=== PATIENT | male | born 1990 | race Caucasian/White ===

== ENCOUNTER 2020-02-14 14:17 | Inpatient (IN) | payer MEDICAID, SELFPAY ==
[2020-02-14] VITALS (9 sets, daily range): BP systolic 107–143; BP diastolic 56–91; PULSE 72–112; RESP 16–20; TEMP 36.5–37.9; O2SAT 96–99; BMI 48.8
--- NOTE | 2020-02-14 14:39 | XR_ITS ---
WS: [id number] PORTABLE CHEST HISTORY: cough/congestion COMPARISON: 07/13/2016 Lungs are clear and well expanded. No pleural effusion or pneumothorax. Cardiac size: Normal. Mediastinum/Aorta: Normal mediastinum. No osseous abnormality seen. XR/XR chest 1V portable [id number] IMPRESSION: Unremarkable portable chest.
--- NOTE | 2020-02-14 14:41 | W.ED.FEVER ---
HPI - Fever General: Chief Complaint: Fever Stated Complaint: fever x 10 days Time Seen by Provider: 02/14/20 14:27 Source: patient Mode of arrival: ambulatory Limitations: no limitations History of Present Illness: HPI Narrative: Patient is a very nice 29-year-old male who presents to ED today with complaints of a fever over the past 10 days. Patient tells me fever has been as high as 102 however states over the past few days it has been in the 100 range. Patient was recently seen by his PCP and had a negative flu and COVID testing performed. He also had lab work performed which showed elevated LFTs. These were scheduled to be monitored and repeated in the future. Patient tells me he is not having abdominal pain. He denies nausea, vomiting, changes in bowel movements. He has noticed darker than normal urine. He does not complain of dysuria, frequency, urgency. He has no flank pain. Patient tells me he has noticed a rash to his lower extremities beginning yesterday and into today. He complains of a mild cough and mild sore throat. He has not had any sick contacts and no recent travel. Patient reportedly is otherwise healthy and takes no daily medications. MD elicited complaint: fever Onset (ago): day(s) Measured temperature: 102 F Exacerbating factors: nothing Relieving factors: acetaminophen and ibuprofen Associated symptoms: Reports chills and other (dark urine, cough, sore throat, rash, told he has elevated LFTs); Deny abdominal pain, back/flank pain, chest pain, diarrhea, dysuria, extremity pain, headache(s), nasal congestion, nausea, sinus pain or vomiting Treatments prior to arrival fever: acetaminophen Review of Systems Const: Reports: fever, chills, body aches and malaise; Denies: change in appetite or change in weight Eyes: Denies: change in vision, blurry vision, photophobia, eye discharge, floaters or seeing flashes ENMT: Reports: throat pain; Denies: uvular edema, enlarged tonsils, mouth pain, swelling of lips/tongue, oral sores/lesions, dental pain, ear discharge, tinnitus, nasal discharge, nasal congestion, post nasal drip or facial/sinus pain Card: Denies: chest pain, palpitations, irregular heart rhythm, swelling of feet/ankles, lightheadedness, syncope or shortness of breath on exertion Resp: Reports: non-productive cough (mild per patient); Denies: shortness of breath, productive cough, pain on inspiration, change in phlegm color, coughing up blood or chest congestion GI: Denies: abdominal pain, nausea, vomiting, vomiting blood, coffee grounds in vomit, heartburn/indigestion, diarrhea, bloating, change in bowel habits, rectal pain, change in stool character, blood in stool, black tarry stool, white/light colored stool or fatty stool : Reports: other (darker than normal urine); Denies: flank pain, difficulty urinating, painful urination, urinary frequency, urinary urgency, urinary hesitancy, difficulty starting urination, change in urine stream, blood in urine, genital lesion, testicular pain, testicular mass or scrotal swelling Musc: Denies: neck pain, back pain, extremity pain, extremity swelling, joint pain or joint swelling Skin/Breast: Reports: rash; Denies: itching, sensitivity to light, skin pain or yellow skin Neuro: Denies: headache, numbness in extremities, weakness in extremities, changes in sensation, difficulty walking, dizziness or slurred speech Endo: Denies: excessive urination or excessive thirst PFSH ED PFSH: Social History Smoking and tobacco status: never smoked Physical Exam Const: COMMON NORMALS: oriented x3, no limitations and alert NUTRITIONAL APPEARANCE: obese morbidly obese ORIENTATION/CONSCIOUSNESS: Yes oriented to person, Yes oriented to place and Yes oriented to time HENMT: COMMON NORMALS: normocephalic, head/scalp atraumatic, hearing grossly normal bilaterally, external ears normal, EAC's normal, TM's normal bilaterally, external nose normal, nasal mucous membranes and turbinates normal, moist oral mucous membranes, oropharynx normal, dentition normal and gingiva normal HEAD & SCALP: normal to inspection, normocephalic and atraumatic FACE & SINUS: normal facial exam and sinuses nontender NOSE: external nose normal and nasal mucous membranes and turbinates normal EXTERNAL EAR: Yes external ears normal EXTERNAL AUDITORY CANAL: EAC's normal TYMPANIC MEMBRANE: TM's normal bilaterally THROAT: posterior oropharynx normal, tonsils normal and uvula midline; no uvular edema Eye: COMMON NORMALS: PERRL, EOMs intact bilaterally, conjunctivae normal and no scleral icterus CONJUNCTIVA: Yes conjunctivae normal PUPIL: Yes PERRL Neck/C-Spine: COMMON NORMALS: full ROM, no lymphadenopathy and no meningeal signs Lymph: LYMPHATIC: no lymphadenopathy noted Chest: COMMONS NORMALS: inspection of chest normal and palpation of chest normal Resp: COMMON NORMALS: normal respiratory effort and clear to auscultation bilaterally AUSCULTATION: clear to auscultation bilaterally Cardio: COMMON NORMALS: regular rhythm RATE: tachycardic RHYTHM: regular rhythm GI: COMMON NORMALS: normal to inspection, nondistended, normoactive bowel sounds, soft to palpation, non-tender, no hepatosplenomegaly and no masses PALPATION: Yes soft and Yes no hepatosplenomegaly OTHER: exam somewhat inhibited due to truncal obesity : COMMON NORMALS: Yes no CVA tenderness BLADDER/KIDNEY EXAM: Yes no CVA tenderness Back/Pelvis: COMMON NORMALS: no CVA tenderness Extremity: COMMON NORMALS: normal to inspection and full ROM Neuro: REGGIE COMA SCALE: document GCS findings Reggie coma scale eye opening: Spontaneous Amasa coma scale verbal response: Orientated Reggie coma scale motor response: Obey commands Reggie coma scale total score: 15 COMMON NORMALS: oriented x3, moves all extremities, no focal motor deficits, no sensory deficits noted and gait normal SENSORIUM/ORIENTATION: Yes alert, Yes oriented to person, Yes oriented to place and Yes oriented to time MENINGEAL SIGNS: Yes no meningeal signs Skin: GENERAL SKIN EXAM: other (diaphoretic?states his fever is breaking) OTHER: pt appears to have some erythema to bilateral anterior legs; this looks to be a mild sunburn as there are definite sock lines where the rash stops; he does however have a petechial appearing rash to bilateral dorsums of his feet that is not consistent with sun exposure Course Vital Signs: Vital signs: Vital Signs Temperature 98.4 F 02/14/20 14:27 Pulse Rate 111 H 02/14/20 14:27 Respiratory Rate 18 02/14/20 14:27 Blood Pressure 143/91 02/14/20 14:27 Pulse Oximetry 98 02/14/20 14:27 MDM - Fever MDM Narrative: Medical decision making narrative: Patient remains tachycardic. He does not seem to be improving with his illness. Labs showing mild leukocytosis, mild thrombocytopenia, mild hyponatremia, mild elevations in BUN/Cr and LFTs, mild elevation of his lipase. He does have a lactate of 2.9. His CRP is over 320. I spoke to Dr. Gannon who spoke to Dr. Kiran and we will admit to observation. We will add on a tick panel, strep, and repeat COVID testing per Dr. Kirna's request Lab Data: Labs: Lab Results 02/14/20 02/14/20 02/14/20 Range/Units 14:45 14:45 14:45 WBC 13.7 H (4.0-10.0) 10^3/ uL RBC 4.98 (4.1-5.3) 10^6/u L Hgb 13.4 (11.7-16.6) g/dL Hct 41.0 L (42.0-52.0) % MCV 82.3 (80-94) fL MCH 26.9 L (28.0-34.0) pg MCHC 32.7 (30.0-36.0) g/dL RDW 14.2 (12.1-15.1) % Plt Count 114 L (130-400) 10^3/c mm MPV 12.4 H (7.4-10.4) fL Neut % (Auto) 83.2 % Lymph % (Auto) 9.5 % Briscoe % (Auto) 5.9 % Eos % (Auto) 0.1 % Baso % (Auto) 0.1 % Neut # (Auto) 11.4 H (1.8-7.7) 10^3/u L Lymph # (Auto) 1.3 (0.8-4.8) 10^3/u L Briscoe # (Auto) 0.8 (0.2-0.9) 10^3/u L Eos # (Auto) 0.0 (0.0-0.8) 10^3/u L Baso # (Auto) 0.0 (0.0-0.1) 10^3/u L Nucleated RBC % (a uto) 0 % Nucleated RBCs # 0.0 /100WBC PT 13.90 H (10.5-13.3) SECO NDS INR 1.07 (0.8-1.2) APTT 27.1 (23.9-36.7) SECO NDS Sodium 129 L (136-145) mmol/L Potassium 4.0 (3.5-5.1) mmol/L Chloride 88 L (98-107) mmol/L Carbon Dioxide 25 (22-29) mmol/L Anion Gap 20.0 H (5-19) BUN 28 H (6-20) mg/dL Creatinine 1.4 H (0.7-1.2) mg/dL GFR Calculation 59.1 L (90-130) mL/min Glucose 196 H (65-115) mg/dL Calculated Osmolal ity 270 L (285-295) mOsm/k g Lactate (0.5-2.2) mmol/L Calcium 9.3 (8.5-10.5) mg/dL Total Bilirubin 1.1 (0.15-1.2) mg/dL AST 42 H (0-40) U/L ALT 63 H (0-41) U/L Alkaline Phosphata se 162 H (40-130) IU/L Creatine Kinase 23 L (39-308) U/L C-Reactive Protein 320.9 H (0.0-4.9) mg/L Total Protein 6.8 (6.6-8.7) g/dL Albumin 3.1 L (3.5-5.2) g/dL Globulin 3.7 (1.3-4.6) g/dL Lipase 107 H (13-60) U/L Urine Color (Yellow) Urine Appearance (CLEAR) Urine pH (5-7) Ur Specific Gravit y (1.005-1.030) Urine Protein (Negative) Urine Glucose (UA) (Normal) Urine Ketones (Negative) Urine Blood (Negative) Urine Nitrate (Negative) Urine Bilirubin (NEGATIVE) Urine Urobilinogen (Negative) mg/dL Ur Leukocyte Carey ase (Negative) Urine RBC (0-2) /hpf Urine WBC (0-5) /hpf Ur Squamous Epith Cells (0-5) Urine Bacteria (NONE) Urine Mucus Salicylates < 0.3 L (3-10) mg/dL Urine Opiates Scre en (Negative) ng/mL Acetaminophen < 5.0 L (10-30) ug/mL Ur Barbiturates Sc reen (Negative) ng/mL Ur Phencyclidine S crn (Negative) ng/mL Ur Amphetamines Sc reen (Negative) ng/mL U Benzodiazepines Scrn (Negative) ng/mL Urine Cocaine Scre en (Negative) ng/mL U Marijuana (THC) Screen (Negative) ng/mL Hepatitis A IgM Ab (Nonreactive) Hep Bs Antigen (Nonreactive) Hep Bs Antibody (0-8.5) Hep B Core Total A b (Nonreactive) Hepatitis C Antibo dy (Nonreactive) Monoscreen (Negative) 02/14/20 02/14/20 02/14/20 Range/Units 14:45 14:45 14:45 WBC (4.0-10.0) 10^3/ uL RBC (4.1-5.3) 10^6/u L Hgb (11.7-16.6) g/dL Hct (42.0-52.0) % MCV (80-94) fL MCH (28.0-34.0) pg MCHC (30.0-36.0) g/dL RDW (12.1-15.1) % Plt Count (130-400) 10^3/c mm MPV (7.4-10.4) fL Neut % (Auto) % Lymph % (Auto) % Briscoe % (Auto) % Eos % (Auto) % Baso % (Auto) % Neut # (Auto) (1.8-7.7) 10^3/u L Lymph # (Auto) (0.8-4.8) 10^3/u L Briscoe # (Auto) (0.2-0.9) 10^3/u L Eos # (Auto) (0.0-0.8) 10^3/u L Baso # (Auto) (0.0-0.1) 10^3/u L Nucleated RBC % (a uto) % Nucleated RBCs # /100WBC PT (10.5-13.3) SECO NDS INR (0.8-1.2) APTT (23.9-36.7) SECO NDS Sodium (136-145) mmol/L Potassium (3.5-5.1) mmol/L Chloride (98-107) mmol/L Carbon Dioxide (22-29) mmol/L Anion Gap (5-19) BUN (6-20) mg/dL Creatinine (0.7-1.2) mg/dL GFR Calculation (90-130) mL/min Glucose (65-115) mg/dL Calculated Osmolal ity (285-295) mOsm/k g Lactate 2.9 H (0.5-2.2) mmol/L Calcium (8.5-10.5) mg/dL Total Bilirubin (0.15-1.2) mg/dL AST (0-40) U/L ALT (0-41) U/L Alkaline Phosphata se (40-130) IU/L Creatine Kinase (39-308) U/L C-Reactive Protein (0.0-4.9) mg/L Total Protein (6.6-8.7) g/dL Albumin (3.5-5.2) g/dL Globulin (1.3-4.6) g/dL Lipase (13-60) U/L Urine Color (Yellow) Urine Appearance (CLEAR) Urine pH (5-7) Ur Specific Gravit y (1.005-1.030) Urine Protein (Negative) Urine Glucose (UA) (Normal) Urine Ketones (Negative) Urine Blood (Negative) Urine Nitrate (Negative) Urine Bilirubin (NEGATIVE) Urine Urobilinogen (Negative) mg/dL Ur Leukocyte Carey ase (Negative) Urine RBC (0-2) /hpf Urine WBC (0-5) /hpf Ur Squamous Epith Cells (0-5) Urine Bacteria (NONE) Urine Mucus Salicylates (3-10) mg/dL Urine Opiates Scre en (Negative) ng/mL Acetaminophen (10-30) ug/mL Ur Barbiturates Sc reen (Negative) ng/mL Ur Phencyclidine S crn (Negative) ng/mL Ur Amphetamines Sc reen (Negative) ng/mL U Benzodiazepines Scrn (Negative) ng/mL Urine Cocaine Scre en (Negative) ng/mL U Marijuana (THC) Screen (Negative) ng/mL Hepatitis A IgM Ab Non-reactive (Nonreactive) Hep Bs Antigen Non-reactive (Nonreactive) Hep Bs Antibody 631.7 H (0-8.5) Hep B Core Total A b Non-reactive (Nonreactive) Hepatitis C Antibo dy Non-reactive (Nonreactive) Monoscreen Negative (Negative) 02/14/20 02/14/20 Range/Units 15:50 15:50 WBC (4.0-10.0) 10^3/ uL RBC (4.1-5.3) 10^6/u L Hgb (11.7-16.6) g/dL Hct (42.0-52.0) % MCV (80-94) fL MCH (28.0-34.0) pg MCHC (30.0-36.0) g/dL RDW (12.1-15.1) % Plt Count (130-400) 10^3/c mm MPV (7.4-10.4) fL Neut % (Auto) % Lymph % (Auto) % Briscoe % (Auto) % Eos % (Auto) % Baso % (Auto) % Neut # (Auto) (1.8-7.7) 10^3/u L Lymph # (Auto) (0.8-4.8) 10^3/u L Briscoe # (Auto) (0.2-0.9) 10^3/u L Eos # (Auto) (0.0-0.8) 10^3/u L Baso # (Auto) (0.0-0.1) 10^3/u L Nucleated RBC % (a uto) % Nucleated RBCs # /100WBC PT (10.5-13.3) SECO NDS INR (0.8-1.2) APTT (23.9-36.7) SECO NDS Sodium (136-145) mmol/L Potassium (3.5-5.1) mmol/L Chloride (98-107) mmol/L Carbon Dioxide (22-29) mmol/L Anion Gap (5-19) BUN (6-20) mg/dL Creatinine (0.7-1.2) mg/dL GFR Calculation (90-130) mL/min Glucose (65-115) mg/dL Calculated Osmolal ity (285-295) mOsm/k g Lactate (0.5-2.2) mmol/L Calcium (8.5-10.5) mg/dL Total Bilirubin (0.15-1.2) mg/dL AST (0-40) U/L ALT (0-41) U/L Alkaline Phosphata se (40-130) IU/L Creatine Kinase (39-308) U/L C-Reactive Protein (0.0-4.9) mg/L Total Protein (6.6-8.7) g/dL Albumin (3.5-5.2) g/dL Globulin (1.3-4.6) g/dL Lipase (13-60) U/L Urine Color Yellow (Yellow) Urine Appearance Clear (CLEAR) Urine pH 5 (5-7) Ur Specific Gravit y 1.010 (1.005-1.030) Urine Protein 1+ H (Negative) Urine Glucose (UA) Norm (Normal) Urine Ketones Negative (Negative) Urine Blood Neg (Negative) Urine Nitrate Negative (Negative) Urine Bilirubin 1+ H (NEGATIVE) Urine Urobilinogen 4+ H (Negative) mg/dL Ur Leukocyte Carey ase Negative (Negative) Urine RBC None (0-2) /hpf Urine WBC 0-4 H (0-5) /hpf Ur Squamous Epith Cells Rare (0-5) Urine Bacteria 1+ H (NONE) Urine Mucus Trace Salicylates (3-10) mg/dL Urine Opiates Scre en Negative (Negative) ng/mL Acetaminophen (10-30) ug/mL Ur Barbiturates Sc reen Negative (Negative) ng/mL Ur Phencyclidine S crn Negative (Negative) ng/mL Ur Amphetamines Sc reen Negative (Negative) ng/mL U Benzodiazepines Scrn Negative (Negative) ng/mL Urine Cocaine Scre en Negative (Negative) ng/mL U Marijuana (THC) Screen Negative (Negative) ng/mL Hepatitis A IgM Ab (Nonreactive) Hep Bs Antigen (Nonreactive) Hep Bs Antibody (0-8.5) Hep B Core Total A b (Nonreactive) Hepatitis C Antibo dy (Nonreactive) Monoscreen (Negative) Imaging Data^: CXR: My impression: borderline cardiomegaly; otherwise no other abnormalities noted Discharge Plan Discharge Patient Disposition: Admitted As Inpatient Clinical Impression: Febrile illness, Elevated LFTs, Hyponatremia Condition: Stable Prescriptions: No Action Multiple Vitamins Tablet 1 tab PO DAILY RF: 0 Tylenol Extra Strength 500 mg Tablet 500 - 1,000 mg PO PRN RF: 0 ibuprofen 200 mg Tablet 600 mg PO BID PRN (Reason: Fever) RF: 0 lisinopril 5 mg Tablet 5 mg PO DAILY RF: 0 Referrals: [facility] [Other] Coding Level of Care Code ED Store Loss Prevention Manager for Chg Fwd Exam Comprehensive
[2020-02-14 14:58] LABS: Basophils % 0.1 %; Eosinophils % 0.1 %; Hemoglobin 13.4 g/dL (11.7-16.6); Lymphocytes # 1.3 10^3/uL (0.8-4.8); Lymphocytes % 9.5 %; Mean Corpuscular HGB Conc 32.7 g/dL (30.0-36.0); Mean Corpuscular Hemoglobin 26.9 pg (28.0-34.0); Mean Corpuscular Volume 82.3 fL (80-94); Mean Platelet Volume 12.4 fL (7.4-10.4); Monocytes # 0.8 10^3/uL (0.2-0.9); Monocytes % 5.9 %; Neutrophils # 11.4 10^3/uL (1.8-7.7); Neutrophils % 83.2 %; Nucleated Red Blood Cells % 0 %; Platelet Count 114 10^3/cmm (130-400); Red Blood Count 4.98 10^6/uL (4.1-5.3); Red Cell Distribution Width 14.2 % (12.1-15.1); White Blood Count 13.7 10^3/uL (4.0-10.0)
[2020-02-14] MEDS: sodium chloride 0.9% 1,000 ML 999 ML IV (15:00)
[2020-02-14 15:10] LABS: Monoscreen Negative (Negative)
[2020-02-14 15:13] LABS: Alanine Aminotransferase 63 U/L (0-41); Albumin Level 3.1 g/dL (3.5-5.2); Alkaline Phosphatase 162 IU/L (40-130); Aspartate Amino Transferase 42 U/L (0-40); Blood Urea Nitrogen 28 mg/dL (6-20); Calcium 9.3 mg/dL (8.5-10.5); Carbon Dioxide 25 mmol/L (22-29); Chloride 88 mmol/L (98-107); Creatine Phosphokinase 23 U/L (39-308); Globulin 3.7 g/dL (1.3-4.6); Glomerular Filtration Rate 59.1 mL/min (90-130); Glucose 196 mg/dL (65-115); Lipase 107 U/L (13-60); Osmolality Calculated 270 mOsm/kg (285-295); Sodium 129 mmol/L (136-145); Total Bilirubin 1.1 mg/dL (0.15-1.2); Total Protein 6.8 g/dL (6.6-8.7)
[2020-02-14 15:14] LABS: Lactate (Lactic Acid level) 2.9 mmol/L (0.5-2.2)
[2020-02-14 15:15] LABS: INR 1.07 (0.8-1.2); Partial Thromboplastin Time 27.1 SECONDS (23.9-36.7)
[2020-02-14 15:16] LABS: Acetaminophen < 5.0 ug/mL (10-30); Salicylate < 0.3 mg/dL (3-10)
[2020-02-14 15:31] LABS: C Reactive Protein 320.9 mg/L (0.0-4.9)
--- NOTE | 2020-02-14 15:31 | CTR_ITS ---
PROCEDURE INFORMATION: Exam: CT Abdomen And Pelvis With Contrast Exam date and time: 02/14/2020 3:42 PM Age: 29 years old Clinical indication: Prior surgery; Surgery date: 6+ months; Surgery type: Gb; Patient HX: C/O fever x 10 days w elev lfts, dark urine - denies pain n/v/d/c; Additional info: Fever, mildly elevated lfts, dark urine TECHNIQUE: Imaging protocol: Computed tomography of the abdomen and pelvis with intravenous contrast. Total DLP: 2145.63 mGy-cm Radiation optimization: All CT scans at this facility use at least one of these dose optimization techniques: automated exposure control; mA and/or kV adjustment per patient size (includes targeted exams where dose is matched to clinical indication); or iterative reconstruction. Contrast material: OMNI 300; Contrast volume: 95 ml; Contrast route: 20G; COMPARISON: CT abdomen pelvis wo con [id number] 11/28/2015 12:36 PM FINDINGS: Liver: Liver is enlarged and measures 24 cm. Gallbladder and bile ducts: Cholecystectomy clips. Pancreas: Normal. No ductal dilation. Spleen: Normal. No splenomegaly. Adrenals: Normal. No mass. Kidneys and ureters: Normal. No hydronephrosis. Stomach and bowel: Unremarkable. No obstruction. No mucosal thickening. Appendix: No evidence of appendicitis. Intraperitoneal space: Unremarkable. No free air. No significant fluid collection. Vasculature: Unremarkable. No abdominal aortic aneurysm. Lymph nodes: Enlarged para-aortic lymph nodes with the largest measuring 1.6 cm. Bladder: Unremarkable as visualized. Reproductive: Unremarkable as visualized. Bones/joints: Unremarkable. No acute fracture. Soft tissues: Unremarkable. CT/CT abdomen pelvis w con* [id number] IMPRESSION: Hepatomegaly. Para-aortic lymphadenopathy. Radiation Dose CTDIVOL = (mGy): DLP = 2145.63 (mGy-cm)
[2020-02-14 15:36] LABS: Hepatitis A Antibody IgM Non-Reactive (Nonreactive); Hepatitis B Core AB, Total Non-Reactive (Nonreactive); Hepatitis B Surface Antigen Non-Reactive (Nonreactive)
[2020-02-14 15:37] LABS: Hepatitis B Surface AB 631.7 (0-8.5); Hepatitis C Virus Antibody Non-Reactive (Nonreactive)
[2020-02-14] MEDS: iohexol 300 mg/mL 100 mL Btl IV (16:10)
[2020-02-14 16:18] LABS: Bilirubin Urine 1+ (NEGATIVE); Blood Urine Neg (Negative); Glucose Urine UA Norm (Normal); Ketones Urine Negative (Negative); Nitrate Urine Negative (Negative); Protein Urine 1+ (Negative); Urine Appearance Clear (CLEAR); Urine Color Yellow (Yellow); Urobilinogen Urine 4+ mg/dL (Negative); pH Urine 5 (5-7)
[2020-02-14 16:19] LABS: Add Urine Microscopic? YES; Bacteria Urine 1+; Leukocyte Esterase Urine Negative (Negative); Squamous Epithelial Cell Urine RARE (0-5); WBC Urine 0-4 /hpf (0-5)
[2020-02-14 16:20] LABS: Add Urine Culture? No; Mucus Urine TRACE
[2020-02-14 16:38] LABS: Amphetamines Screen Urine Negative (Negative); Barbiturates Screen Urine Negative (Negative); Benzodiazepines Screen Urine Negative (Negative); Cocaine Screen Urine Negative (Negative); Opiate Screen Urine Negative (Negative); PCP Screen Urine Negative (Negative); THC Screen Urine Negative (Negative)
--- NOTE | 2020-02-14 17:29 | PC.NURSE ---
Attempted to give report. Nurse unable to take report because another patient is being transferred to another facility. The nurse will call back to take report when available.
[2020-02-14] MEDS: doxycycline 100 mg Tablet 200 MG PO (17:52)
[2020-02-14 18:20] LABS: Rapid Strep A Test Negative (Negative)
[2020-02-14] MEDS: sodium chloride 0.9% 1,000 ML 100 ML IV (18:28)
--- NOTE | 2020-02-14 19:29 | P.HP_ITS ---
Providers/Chief Complaint Admitting Physician: Inocente Montes MD Primary Care Provider: Beverly Perez Chief Complaint: FEVER, POSS TICKBORNE ILLNESS History of Present Illness Roberto Paniagua is a 29 year old male with past medical history of hypertension, alcohol abuse, morbid obesity, cholecystectomy presented to the ER today with history of fevers for 2 weeks. As per the patient he has been worked up as an outpatient by his primary care physician for strep throat, COVID-19 over last past 1 week and was reportedly negative. Patient presented to the ER today as he was getting frustrated of continuous fever for last 2 weeks going as high as 102 Fahrenheit. Patient states his fever has been intermittent but has been facial with chills and Reiger's. He denies of having any nausea, vomiting, runny nose, flulike symptoms, headache, dysuria, diarrhea, abdominal pain. Patient is also complaining of joint pains all over his body mostly in his knees bilaterally and bilateral ankle joints and bilateral shoulders which is been going on for more than 1 month. Patient denies of any recent travel other than more than 45 days ago when he had gone to [facility]. Denies of having any sick contacts, anybody sick around him. He states he has never had a simila r problem in the past. He states he works [place] the [place] for most of the time. Is not aware of tick bites but does state that there are a lot of ticks around his house at present. He also states he has 4 dogs as pets all of whom are properly vaccinated. He denies of having remembering any animal bites. Is not sure about plant breaks. He denies of having any night sweats, weight loss, cough, shortness of breath, vomiting, dysuria-like symptoms, joint stiffness, joint swelling, rash on his body. In ER patient was found to have mild leukocytosis, mild SANDRA with creatinine up to 1.4, afebrile, hemodynamically stable, COVID-19 testing was sent. Review of Systems Const: Reports: fever, chills and body aches; Denies: change in appetite, malaise, night sweats, diaphoresis, change in sleep pattern, daytime sleepiness or snoring Eyes: Denies: change in vision, blurry vision, photophobia, eye discomfort or eye discharge ENMT: Denies: throat pain, enlarged tonsils, hoarseness, mouth pain, oral sores/lesions, dry mouth, tinnitus, nasal congestion or post nasal drip Card: Denies: chest pain, palpitations, irregular heart rhythm, edema, swelling of feet/ankles, lightheadedness, syncope, pre-syncope, shortness of breath on exertion, shortness of breath when lying down, leg pain with exertion or bluish discoloration of hands/feet Resp: Denies: shortness of breath, productive cough, non-productive cough, wheezing, stridor, pain on inspiration, change in phlegm color, coughing up blood or chest congestion GI: Denies: abdominal pain, nausea, vomiting, vomiting blood, coffee grounds in vomit, difficulty swallowing, heartburn/indigestion, diarrhea, constipation, bloating, cramping, change in bowel habits, painful bowel movements, blood in stool or black tarry stool : Denies: flank pain, difficulty urinating, painful urination, urinary frequency, urinary urgency, urinary hesitancy, urinary dribbling, difficulty starting urination, change in urine stream, nighttime urination or blood in urine Musc: Reports: extremity pain, joint pain and joint stiffness; Denies: neck pain, back pain, joint swelling, redness or limited range of motion Neuro: Denies: headache, numbness in extremities, weakness in extremities, changes in sensation, lack of coordination, difficulty walking, frequent falls, dizziness, vertigo, confusion, slurred speech, difficulty communicating thoughts or seizure-like activity Psych: Denies: anxiety, depression, mood swings, panic attacks, hopelessness or irritability Endo: Denies: excessive urination, excessive thirst, tired all the time, cold intolerance, excessive sweating, flushing or heat intolerance David/Lymph: Denies: easy bruising or easy bleeding All/Imm: Denies: tongue swelling, facial swelling or acute wheezing Medications/Allergies Home Medications Medication Instructions Recorded Confirmed Last Taken Type acetaminophen [Tylenol Extra 500 - 1,000 mg PO PRN 02/14/20 02/14/20 02/10/20 History Strength] ibuprofen 600 mg PO BID PRN 02/14/20 02/14/20 02/14/20 12:00 History lisinopril 5 mg PO DAILY 02/14/20 02/14/20 02/13/20 History multivitamin [Multiple Vitamins] 1 tab PO DAILY 02/14/20 02/14/20 02/13/20 History Allergies Allergy/AdvReac Type Severity Reaction Status Date / Time No Known Allergies Allergy Verified 02/14/20 14:32 PFSH Acute PFSH: Medical History (Updated 02/14/20 @ 19:49 by Inocente Montes MD) Alcohol abuse HTN (hypertension) Morbid obesity Surgical History (Updated 02/14/20 @ 19:34 by Inocente Montes MD) History of cholecystectomy Social History Smoking and tobacco status: never smoked Vitals/I&O/Wt Last Vital Signs Temp 98.3 F 02/14/20 18:20 Pulse 105 H 02/14/20 18:30 Resp 20 H 02/14/20 18:30 BP 126/63 02/14/20 18:30 Pulse Ox 99 02/14/20 18:30 Weight last 48 hrs Weight 170.551 kg Weight 163.293 kg Physical Exam Narrative: EXAM NARRATIVE: General: No acute distress, AO x3, morbidly obese, anxious HEENT: PERRLA, pupils bilaterally equal and reactive Chest: Normal vesicular breath sounds, no added sounds, equal good air entry bilaterally CVS: S1-S2 regular, no murmurs, no tachycardia, no gallops, no rubs Abdomen: Soft, nontender, no organomegaly, bowel sounds present Neuro: No focal deficits, no facial deformity, AO x3, power 5/5 in all limbs Extremities: Tenderness in bilateral knees, no localizing temperature, no range of motion abnormality. Data : 02/15/20 03:26 02/15/20 05:22 Micro: Microbiology 02/14/20 14:54 Blood Culture - Preliminary Blood SPECIMEN COLLECTED 02/14/20 14:44 Blood Culture - Preliminary Blood SPECIMEN COLLECTED A&P Assessment and plan (1) Sepsis: Status: Acute (2) Febrile illness: Status: Acute (3) Hyponatremia: Status: Acute (4) SANDRA (acute kidney injury): Status: Acute (5) Elevated LFTs: Status: Acute (6) HTN (hypertension): Status: Acute (7) Morbid obesity: Status: Acute Additional A&P Information Febrile illness: Given the fact that patient has been having fever for around 2 weeks we will admit the patient for further work-up. Patient tachycardic, lactate elevated, leukocytosis so positive for sepsis criteria. Check blood culture, urinalysis, urine culture, procalcitonin, lactate with reflex, COVID-19, tick panel, [facility] TERI profile, hepatitis panel, HIV, enteric panel for stool. CT abdomen pelvis already done in the ER negative for any source of infection other than some para-aortic lymphadenopathy. As patient has seen the CT scan cannot rule out lymphoma. Will check peripheral smear, QuantiFERON. Isolation for now till negative for COVID 19 If everything comes back to be negative will look for planning for Sporothrix though unlikely at present but can be possible due to nature of his physical activity and work. We will hold off on starting of any antifungals for now. Patient given doxycycline in the ER. Will continue same for now. If patient esquivel s a real fever in next 48 hours we will transition over to ceftriaxone. SANDRA: Creatinine 1.4 right now. Most likely because of dehydration along with consumption of daily lisinopril for blood pressure. We will hold off on lisinopril for now. IV fluid normal saline at 125 cc/h. Check BMP daily. Hyponatremia: Most likely because of dehydration. Check urine lites, urine osmolality. Continue IV fluids as above. Check BMP daily. Hypertension: We will hold off on lisinopril for now given the SANDRA. Continue monitoring blood pressure for now. Attestations Medical Necessity Statement*: > 2MN for FUO/Sepsis Time Spent in Patient Care: Greater than 35 minutes Coding Level of Care Code Acute Medical Laboratory Technical Officer for [facility] Fwd Diagnoses Sepsis A41.9 Febrile illness R50.9 Hyponatremia E87.1 SANDRA (acute kidney injury) N17.9 Elevated LFTs R79.89 HTN (hypertension) I10 Morbid obesity E66.01
[2020-02-14 20:09] LABS: Lactate Dehydrogenase 241 U/L (135-225)
[2020-02-14 20:15] LABS: D Dimer 1.74 ug/mIFEU (0-0.59)
[2020-02-14] MEDS: famotidine 20 mg/2 mL INJ IVP (20:18)
[2020-02-14] MEDS: enoxaparin 40 mg/0.4 mL Syringe SUBCUT (20:18)
[2020-02-14 20:19] LABS: Procalcitonin 0.81 ng/mL (0-0.5)
[2020-02-14 20:27] LABS: HIV 1 & 2 Antibody Non-Reactive (Non-Reactiv); HIV 1 & 2 Antigen Non-Reactive (Non-Reactiv)
[2020-02-14 20:35] LABS: Glucose Point of Care 179 mg/dL (70-110)
[2020-02-14 23:07] LABS: Potassium, Radom Urine 43 mmol/L
[2020-02-14 23:25] LABS: Urine Random Chloride < 10 mmol/L; Urine Random Sodium < 10 mmol/L
[2020-02-15] VITALS (12 sets, daily range): BP systolic 104–154; BP diastolic 56–85; PULSE 72–114; RESP 17–22; TEMP 36.5–37.3; O2SAT 95–98
[2020-02-15 02:15] LABS: LAB Peripheral Smear Sent for Review
[2020-02-15 04:08] LABS: Basophils % 0.2 %; Eosinophils % 0.1 %; Hematocrit 35.5 % (42.0-52.0); Hemoglobin 11.5 g/dL (11.7-16.6); Lymphocytes % 10.5 %; Mean Corpuscular HGB Conc 32.4 g/dL (30.0-36.0); Mean Corpuscular Hemoglobin 26.6 pg (28.0-34.0); Mean Platelet Volume 12.7 fL (7.4-10.4); Monocytes # 0.5 10^3/uL (0.2-0.9); Monocytes % 4.9 %; Neutrophils % 83.1 %; Nucleated Red Blood Cells % 0 %; Platelet Count 121 10^3/cmm (130-400); Red Blood Count 4.33 10^6/uL (4.1-5.3); Red Cell Distribution Width 14.4 % (12.1-15.1); White Blood Count 9.6 10^3/uL (4.0-10.0)
[2020-02-15 04:31] LABS: Lactate (Lactic Acid level) 1.9 mmol/L (0.5-2.2)
[2020-02-15] MEDS: doxycycline 100 MG in sodium chloride 0.9% (plus) 100 ML IV (04:34)
[2020-02-15] MEDS: sodium chloride 0.9% 1,000 ML 125 ML IV ×2 (04:35→13:50)
[2020-02-15 04:58] LABS: Chol HDL Ratio 5.86 mg/dL (1.0-5.00); Cholesterol 82 mg/dL (0-200); HDL Cholesterol 14 mg/dL (60-100); LDL Cholesterol Calculated 29 mg/dL (50-129); Triglycerides 194 mg/dL (0-150); VLDL Cholestrol Calculation 39 mg/dL (0-30)
[2020-02-15 05:37] LABS: Estmated Average Glucose 146; Hemoglobin A1C 6.7 % (4.0-6.0)
[2020-02-15 06:33] LABS: Alanine Aminotransferase 45 U/L (0-41); Albumin Level 2.5 g/dL (3.5-5.2); Alkaline Phosphatase 126 IU/L (40-130); Anion Gap 17.9 (5-19); Aspartate Amino Transferase 37 U/L (0-40); Blood Urea Nitrogen 36 mg/dL (6-20); Calcium 8.2 mg/dL (8.5-10.5); Carbon Dioxide 23 mmol/L (22-29); Chloride 90 mmol/L (98-107); Globulin 3.2 g/dL (1.3-4.6); Glomerular Filtration Rate 70.6 mL/min (90-130); Glucose 181 mg/dL (65-115); Osmolality Calculated 266 mOsm/kg (285-295); Potassium 3.9 mmol/L (3.5-5.1); Sodium 127 mmol/L (136-145); Total Bilirubin 1.1 mg/dL (0.15-1.2); Total Protein 5.7 g/dL (6.6-8.7)
[2020-02-15] MEDS: famotidine 20 mg/2 mL INJ IVP ×2 (07:20→19:51)
[2020-02-15 07:34] LABS: Glucose Point of Care 148 mg/dL (70-110)
[2020-02-15 11:30] LABS: Glucose Point of Care 156 mg/dL (70-110)
--- NOTE | 2020-02-15 13:52 | CTR_ITS ---
PROCEDURE INFORMATION: Exam: CT Chest Without Contrast Exam date and time: 02/15/2020 4:20 PM Age: 29 years old Clinical indication: Cough; Additional info: Pna TECHNIQUE: Imaging protocol: Computed tomography of the chest without contrast. Total DLP: 1057.02 mGy-cm Radiation optimization: All CT scans at this facility use at least one of these dose optimization techniques: automated exposure control; mA and/or kV adjustment per patient size (includes targeted exams where dose is matched to clinical indication); or iterative reconstruction. COMPARISON: CR XR chest 1V portable [id number] 02/14/2020 2:59 PM FINDINGS: Lungs: No infiltrate is seen. Pleural space: No pleural effusion. No pneumothorax. Heart: Unremarkable. No cardiomegaly. No pericardial effusion. Aorta: The thoracic aorta is normal caliber. No aneurysm or dissection is seen. Lymph nodes: No lymphadenopathy. Gallbladder and bile ducts: Cholecystectomy clips are noted. Spleen: Splenomegaly is noted. The spleen measures 21 cm in greatest axial dimension. Bones/joints: No acute osseous abnormality is detected. CT/CT chest con [id number] IMPRESSION: 1. No acute abnormality identified in the chest. 2. Splenomegaly. Radiation Dose CTDIVOL = (mGy): DLP = 1057.02 (mGy-cm)
[2020-02-15 14:58] LABS: Coronavirus Lab Test PTC NOT DETECTED
[2020-02-15 15:36] LABS: Procalcitonin 0.75 ng/mL (0-0.5)
[2020-02-15] MEDS: doxycycline 100 mg Tablet PO (17:20)
--- NOTE | 2020-02-15 17:20 | P.PN_ITS ---
Subjective Subjective: Interval history: No acute events overnight. T-max in last 24 hours since admission is 1 fever of 100.3 at 8 PM last night. Patient is lying comfortably in bed on examination. COVID-19 test negative. He is complaining of new rash on his right foot. Vitals/I&O/Wt Last Vital Signs Temp 98.7 F 02/15/20 14:00 Pulse 109 H 02/15/20 16:00 Resp 18 02/15/20 16:00 BP 154/63 02/15/20 14:00 Pulse Ox 98 02/15/20 16:00 02/15/20 02/15/20 02/15/20 06:59 14:59 22:59 Intake Total 1000 / 1000 1360 / 1360 Output Total 250 / 1000 Balance 750 / 0 1360 / 1360 Weight last 48 hrs Weight 172.365 kg Weight 170.551 kg Weight 163.293 kg Physical Exam Narrative: EXAM NARRATIVE: General: No acute distress, AO x3, morbidly obese, anxious HEENT: PERRLA, pupils bilaterally equal and reactive Chest: Normal vesicular breath sounds, no added sounds, equal good air entry bilaterally CVS: S1-S2 regular, no murmurs, no tachycardia, no gallops, no rubs Abdomen: Soft, nontender, no organomegaly, bowel sounds present Neuro: No focal deficits, no facial deformity, AO x3, power 5/5 in all limbs Extremities: Tenderness in bilateral knees, no localizing temperature, no range of motion abnormality. Data : 02/15/20 03:26 02/15/20 05:22 Micro: Microbiology 02/15/20 06:40 Stool Lactoferrin - Final Stool Enteric Pathogens (PCR) - Final Parasite Antigen Panel - Final C.difficile Toxin B Gene (PCR) - Final Occult Blood (FIT) - Final 02/14/20 14:54 Blood Culture - Preliminary Blood NEGATIVE TO DATE 02/14/20 14:44 Blood Culture - Preliminary Blood NEGATIVE TO DATE 02/14/20 22:40 MRSA Culture - Final Nose 02/14/20 22:40 Legionella Urinary Antigen - Final Urine,Clean Catch A&P Assessment and plan (1) Sepsis: Status: Acute (2) Febrile illness: Status: Acute (3) Hyponatremia: Status: Acute (4) SANDRA (acute kidney injury): Status: Acute (5) Elevated LFTs: Status: Acute (6) HTN (hypertension): Status: Acute (7) Morbid obesity: Status: Acute (8) Type 2 diabetes mellitus: Status: Acute Additional A&P Information Sepsis/febrile illness: Given the fact that patient has been having fever for around 2 weeks we will admit the patient for further work-up. Patient tachycardic, lactate elevated, leukocytosis so positive for sepsis criteria. Continue with doxycycline for now. Hepatitis panel, HIV, enteric panel for stool, urinalysis negative. Blood culture and urine culture results awaited. Pro-Gonzalo mildly elevated but can be because of SANDRA on admission. Strep negative. We will repeat procalcitonin as creatinine better now. [facility] TERI profile, tick panel awaited, [facility] [place] awaited. Results for CT abdomen/pelvis, peripheral smear noted Remove isolation as COVID-19 negative. As COVID-19 is negative will check for CT chest without contrast and lower limb Dopplers. If everything comes back to be negative will look for planning for Sporothrix though unlikely at present but can be possible due to nature of his physical activity and work. We will hold off on starting of any antifungals for now. SANDRA: Resolved. Most likely from dehydration. Medical reconciliation done for nephrotoxic drugs. Stop IV fluids as patient is tolerating p.o. well. Hyponatremia: Mild worsening today. Corrected sodium 128. Now given the fact that sodium is still poor after IV hydration it could most likely be from beer proteinemia because of chronic alcohol abuse in the past. No symptoms of hyponatremia for now. Check BMP daily. Hypertension: Blood pressure well under control since admission even though holding lisinopril. Patient states lisinopril was started very recently when he had gone to his nurse practitioner. Most likely patient does not need antihypertensive. Given tachycardia even though patient is afebrile we will start patient on Lopressor 12.5 mg twice daily. Deranged LFTs: Resolving. We will continue to monitor. Type 2 diabetes mellitus: A1c 6.7. Continue with insulin sliding scale at low dose protocol for now. Patient would most likely need metformin on discharge. Full code. Lovenox for DVT prophylaxis Regular diet. Attestations Medical Necessity Statement*: Sepsis under evaluation. Time Spent in Patient Care: Greater than 35 minutes (>than 50% of time spent in counselling and/or direct pt care on unit) . Coding Level of Care Code Acute Digital Campaign Specialist for [facility] Fwd Diagnoses Sepsis A41.9 Febrile illness R50.9 Hyponatremia E87.1 SANDRA (acute kidney injury) N17.9 Elevated LFTs R79.89 HTN (hypertension) I10 Morbid obesity E66.01 Type 2 diabetes mellitus E11.9
[2020-02-15] MEDS: metoprolol tartrate 25 mg Tablet 12.5 MG PO (17:21)
[2020-02-15 17:28] LABS: Glucose Point of Care 133 mg/dL (70-110)
[2020-02-15] MEDS: enoxaparin 40 mg/0.4 mL Syringe SUBCUT (19:41)
[2020-02-15 20:50] LABS: Glucose Point of Care 126 mg/dL (70-110)
[2020-02-16] VITALS (8 sets, daily range): BP systolic 98–140; BP diastolic 43–68; PULSE 98–114; RESP 16–22; TEMP 37.3–37.7; O2SAT 95–99
[2020-02-16] MEDS: doxycycline 100 mg Tablet PO ×2 (04:56→17:12)
[2020-02-16 05:16] LABS: Basophils % 0.1 %; Eosinophils % 0.1 %; Hematocrit 34.6 % (42.0-52.0); Hemoglobin 11.5 g/dL (11.7-16.6); Lymphocytes # 0.8 10^3/uL (0.8-4.8); Lymphocytes % 8.6 %; Mean Corpuscular HGB Conc 33.2 g/dL (30.0-36.0); Mean Corpuscular Hemoglobin 27.8 pg (28.0-34.0); Mean Corpuscular Volume 83.6 fL (80-94); Mean Platelet Volume 11.7 fL (7.4-10.4); Monocytes # 0.5 10^3/uL (0.2-0.9); Monocytes % 5.4 %; Neutrophils # 7.7 10^3/uL (1.8-7.7); Neutrophils % 84.3 %; Nucleated Red Blood Cells % 0 %; Platelet Count 150 10^3/cmm (130-400); Red Blood Count 4.14 10^6/uL (4.1-5.3); Red Cell Distribution Width 14.7 % (12.1-15.1); White Blood Count 9.1 10^3/uL (4.0-10.0)
[2020-02-16 05:43] LABS: Alanine Aminotransferase 51 U/L (0-41); Albumin Level 2.4 g/dL (3.5-5.2); Alkaline Phosphatase 139 IU/L (40-130); Anion Gap 16.7 (5-19); Aspartate Amino Transferase 56 U/L (0-40); Blood Urea Nitrogen 32 mg/dL (6-20); Calcium 8.4 mg/dL (8.5-10.5); Carbon Dioxide 21 mmol/L (22-29); Chloride 92 mmol/L (98-107); Globulin 3.4 g/dL (1.3-4.6); Glomerular Filtration Rate 98.4 mL/min (90-130); Glucose 171 mg/dL (65-115); Osmolality Calculated 263 mOsm/kg (285-295); Potassium 3.7 mmol/L (3.5-5.1); Sodium 126 mmol/L (136-145); Total Bilirubin 2.1 mg/dL (0.15-1.2); Total Protein 5.8 g/dL (6.6-8.7)
[2020-02-16 06:17] LABS: Glucose Point of Care 136 mg/dL (70-110)
--- NOTE | 2020-02-16 08:03 | USCV_ITS ---
SivaRoberto Age: 29 Gender: M : 1990 Exam Date: 02/16/2020 13:58 Ordering Phys: Inocente Montes MD Technologist: Sathya Jon Exam Location: [facility] [place] Indication: DVT HISTORY: DVT. PROCEDURES: Venous duplex imaging was performed in bilateral lower extremities. The following venous structures were evaluated: common femoral vein, profunda vein, proximal portion of the greater saphenous vein, superficial femoral vein, and the popliteal vein. In addition, the posterior tibial and peroneal trunk were evaluated. Serial compression, augmentation maneuvers, and spectral Doppler flow evaluation were performed. FINDINGS: Normal 2-D Doppler and augmentation and compressibility throughout the lower extremity venous structures. Additional imaging through the proximal calf veins also reveals no thrombus. Limited evaluation of the greater saphenous vein is patent with no thrombus. CONCLUSIONS No DVT bilateral lower extremities. Dr. Bhavana Inman DO (Electronically Signed) Final Date: 16 February 2020 15:00 S
--- NOTE | 2020-02-16 08:05 | USCV_ITS ---
Roberto Paniagua Age: 29 Gender: M : 1990 Exam Date: 02/16/2020 13:46 Ordering Phys: Inocente Montes MD Technologist: Sathya Jon [place] [facility] [place] Indication: IE BP: 135 / 78 HR: 109 Rhythm: Sinus Technical Quality: Suboptimal MEASUREMENTS (Male / Female) Normal Values 2D ECHO LV Diastolic Diameter PLAX 5.2 cm 4.2 - 5.9 / 3.9 - 5.3 cm LV Systolic Diameter PLAX 3.2 cm IVS Diastolic Thickness 1.1 cm 0.6 - 1.0 / 0.6 - 0.9 cm IVS Systolic Thickness 1.3 cm LVPW Diastolic Thickness 1.1 cm 0.6 - 1.0 / 0.6 - 0.9 cm LVPW Systolic Thickness 1.5 cm LVOT Diameter 2.1 cm LV Ejection Fraction 2D Teich 68.6 % LV Ejection Fraction MOD 2C 67.5 % LV Ejection Fraction 2C AL 67.5 % LA Diameter 3.9 cm LA Width 5.1 cm LA Height 6.3 cm RA Width 4.7 cm RA Height 5.7 cm Aorta at Sinotubular Diameter 3.2 cm M-MODE LV Diastolic Diameter MM 6.1 cm 4.2 - 5.9 / 3.9 - 5.3 cm LV Systolic Diameter MM 4.2 cm LV Ejection Fraction MM Teich 57.5 % IVS Diastolic Thickness MM 1.1 cm 0.6 - 1.0 / 0.6 - 0.9 cm IVS Systolic Thickness MM 1.5 cm LVPW Diastolic Thickness MM 1.3 cm 0.6 - 1.0 / 0.6 - 0.9 cm LVPW Systolic Thickness MM 1.6 cm RV Diastolic Diameter MM 1.7 cm Aortic Annulus Diameter 4.3 cm LA Ao Ratio MM 0.9 MV E Point Septal Separation 0.8 cm DOPPLER AV Peak Velocity 141.0 cm/s LVOT Peak Velocity 123.0 cm/s AV Area Cont Eq vti 2.5 cm squared AV Area Cont Eq pk 3.0 cm squared MV Area PHT 5.0 cm squared Mitral E to A Ratio 1.5 MV E' Velocity 10.0 cm/s Mitral E to MV E' Ratio 11.9 Mitral E to LV E' Lateral Ratio 13.0 Mitral E to LV E' Septal Ratio 11.0 TR Peak Velocity 135.0 cm/s TR Peak Gradient 7.3 mmHg Right Atrial Pressure 3.0 mmHg Pulmonary Artery Systolic Pressu 10.3 mmHg PV Peak Velocity 113.0 cm/s FINDINGS Left Ventricle Normal left ventricular size, systolic function and wall thickness, with no regional wall motion abnormalities. Left ventricular ejection fraction is estimated at 60 %. Normal diastolic function. Right Ventricle Normal right ventricular size and systolic function. Right ventricular systolic pressure 10.3 mmHg. Right Atrium Normal right atrial size. Left Atrium Normal left atrial size. Mitral Valve Structurally normal mitral valve. No mitral valve stenosis. No mitral valve regurgitation. Aortic Valve Aortic valve not well visualized. No aortic valve stenosis. No aortic valve regurgitation. Tricuspid Valve Tricuspid valve not well visualized. Pulmonic Valve Pulmonic valve not well visualized. Trace pulmonary valve regurgitation. Pericardium No pericardial effusion. Aorta Normal size aortic root and proximal ascending aorta. CONCLUSIONS 1. Normal left ventricular size, systolic function and wall thickness, with no regional wall motion abnormalities. Left ventricular ejection fraction is estimated at 60 %. Normal diastolic function. 2. Normal right ventricular size and systolic function. 3. Normal pulmonary artery pressure. 4. No evidence of valvular vegetation based on the study. However valves were not adequately visualized, MAX is recommended if clinically indicated. 5. No prior similar studies to compare. Casi Goldberg MD (Electronically Signed) Final Date: 16 February 2020 15:59 S
[2020-02-16] MEDS: famotidine 20 mg/2 mL INJ IVP ×2 (08:34→18:17)
[2020-02-16] MEDS: metoprolol tartrate 25 mg Tablet 12.5 MG PO (08:35)
[2020-02-16 09:03] LABS: Rapid Plasma Reagin Syphilis Nonreactive (Nonreactive)
[2020-02-16 09:21] LABS: Erythrocyte Sedimentation Rate 53 mm/hr (0-10)
--- NOTE | 2020-02-16 10:51 | P.PN_ITS ---
Subjective Subjective: Interval history: No acute events overnight. T-max in last 24 hours 99.8 Fahrenheit. Temperature curve has changed and fever is becoming persistent but the spike is decreasing. He denies of having nausea, vomiting, headache, dizziness. Patient is complaining of new rash which as per him started in late evening more so on both of his arms but now has spread to his belly as well. He denies of having any itching, pain at the rash. Vitals/I&O/Wt Last Vital Signs Temp 99.8 F H 02/16/20 08:00 Pulse 110 H 02/16/20 08:00 Resp 16 02/16/20 08:00 BP 101/43 02/16/20 08:00 Pulse Ox 97 02/16/20 08:00 02/15/20 02/16/20 02/16/20 22:59 06:59 14:59 Intake Total 360 / 1720 600 / 2320 360 / 360 Balance 360 / 1720 600 / 2320 360 / 360 Weight last 48 hrs Weight 172.365 kg Weight 170.551 kg Weight 163.293 kg Physical Exam Narrative: EXAM NARRATIVE: General: No acute distress, AO x3, morbidly obese, anxious HEENT: PERRLA, pupils bilaterally equal and reactive Chest: Normal vesicular breath sounds, no added sounds, equal good air entry bilaterally CVS: S1-S2 regular, no murmurs, no tachycardia, no gallops, no rubs Abdomen: Soft, nontender, no organomegaly, bowel sounds present Neuro: No focal deficits, no facial deformity, AO x3, power 5/5 in all limbs Extremities: Tenderness in bilateral knees, no localizing temperature, no range of motion abnormality. Skin: Multiple blanchable target-like lesions, slightly raised present bilateral arms, torso, bilateral legs. Data : 02/16/20 04:45 02/16/20 04:45 Micro: Microbiology 02/15/20 06:40 Stool Lactoferrin - Final Stool Enteric Pathogens (PCR) - Final Parasite Antigen Panel - Final C.difficile Toxin B Gene (PCR) - Final Occult Blood (FIT) - Final 02/14/20 14:54 Blood Culture - Preliminary Blood NEGATIVE TO DATE 02/14/20 14:44 Blood Culture - Preliminary Blood NEGATIVE TO DATE 02/14/20 22:40 MRSA Culture - Final Nose A&P Assessment and plan (1) Sepsis: Status: Acute (2) Febrile illness: Status: Acute (3) Hyponatremia: Status: Acute (4) SANDRA (acute kidney injury): Status: Acute (5) Elevated LFTs: Status: Acute (6) HTN (hypertension): Status: Acute (7) Morbid obesity: Status: Acute (8) Type 2 diabetes mellitus: Status: Acute (9) Erythema multiforme: Status: Acute Additional A&P Information Sepsis/febrile illness: Given the fact that patient has been having fever for around 2 weeks we will admit the patient for further work-up. Patient tachycardic, lactate elevated, leukocytosis so positive for sepsis criteria. Erythema multiforme: Rash consistent with erythema multiforme A. Patient's hepatitis panel, HIV, enteric panel for stool, urine analysis, strep antigen are all negative. 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 Tick panel awaited. [place] spotted fever panel awaited. Patient has mildly elevated ESR, CRP though not significant but with low-grade fevers going on for 2 to 3 weeks along with multiple joint pains cannot rule out rheumatological disorder. [facility] TERI profile awaited. Results of CTA abdomen pelvis, chest appreciated. Consistent with para-aortic lymphadenopathy. Peripheral smear results appreciated negative for lymphoma. Patient denies of consuming unpasteurized products, raw meat but does go for fishing and has had some raw fish in between. Stool studies negative for any bacteria or parasite. We will check for tularemia, leptospirosis, mycoplasma. Will check bacterial urine antigen. Check respiratory viral panel. QuantiFERON-TB gold awaited. Continue doxycycline at the same dose for now. We will add ceftriaxone 1 g daily from today onwards. Blood cultures have remained negative. If everything comes back to be negative will look for planning for Sporothrix though unlikely at present but can be possible due to nature of his physical activity and work. We will hold off on starting of any antifungals for now. SANDRA: Resolved. Most likely from dehydration. Medical reconciliation done for nephrotoxic drugs. Stop IV fluids as patient is tolerating p.o. well. Hyponatremia: Mild worsening today. Corrected sodium 128. Now given the fact that sodium is still poor after IV hydration it could most likely be from beer proteinemia because of chronic alcohol abuse in the past. No symptoms of hyponatremia for now. Check BMP daily. No acute signs of hyponatremia Hypertension: Blood pressure well under control since admission even though holding lisinopril. Patient states lisinopril was started very recently when he had gone to his nurse practitioner. Most likely patient does not need antihypertensive. Deranged LFTs: Worsened again today. We will continue to monitor for same. Right upper quadrant USG today. Type 2 diabetes mellitus: A1c 6.7. Continue with insulin sliding scale at low dose protocol for now. Patient would most likely need metformin on discharge. Full code. Lovenox for DVT prophylaxis Regular diet. Attestations Medical Necessity Statement*: FUO under investigations Time Spent in Patient Care: Greater than 35 minutes (>than 50% of time spent in counselling and/or direct pt care on unit) . Coding Level of Care Code Acute [employer] for g Fwd Diagnoses Sepsis A41.9 Febrile illness R50.9 Hyponatremia E87.1 SANDRA (acute kidney injury) N17.9 Elevated LFTs R79.89 HTN (hypertension) I10 Morbid obesity E66.01 Type 2 diabetes mellitus E11.9 Erythema multiforme L51.9
[2020-02-16 11:01] LABS: Lyme AB Screen <0.90 index
[2020-02-16 11:19] LABS: Glucose Point of Care 146 mg/dL (70-110)
--- NOTE | 2020-02-16 12:10 | PC.CHAP ---
Pastoral Care Encounter/Spiritual Assessment Type of Contact [] Declined community life director visit [] Patient/Family/Request visit [] Outpatient visit [] Follow-up visit [] Physician referral [] Code/Alert [] Routine visit [] Staff referral [] Actively dying [] Patient sleeping [] Family support [] [] Out of room [] Palliative care [] [] Receiving care in room [] Pre-surgical visit [] Trauma [] Long length of stay [] ICU visit [] Other: Isolation Relational/Emotional Strength [] Patient feels connected with others/family/visitors/staff [] Distress [] Loneliness/isolation [] Abandonment Spirituality of Patient [] Person of Stacy [] Attends Yarsani of their Stacy [] Believes in Prayer [] Reads Bible or Caodaism materials [] There are Spiritual issues to be addressed Seconds Handler Interventions [] Prayer [] Active listening [] Non-anxious presence [] Spiritual/emotional support [] Crisis/trauma care [] Spiritual counseling [] Bereavement support [] Provided bereavement packet [] Provided Bible/devotional materials [] Provided toy/stuffed animal, coloring book to patient or family member [] Provided Communion [] Anointing/[place] [] Salvation [] Completed spiritual assessment [] Other: Impact on Illness or Injury [] Angry [] Fearful [] Anxious [] Often cries [] Exhaustion [] Unable to work [] Unable to attend bahai [] Unable to walk/stand [] Unable to read [] Unable to drive [] Unable to eat/drink [] Unable to sleep [] Unable to be with family [] Patient intubated [] Other: Summary Isolation Time spent with patient 5 mins
[2020-02-16] MEDS: cefTRIAXone 1,000 MG in sodium chloride 0.9% (plus) 50 ML 100 MG IV (13:34)
[2020-02-16] MEDS: acetaminophen 325 mg Tablet 650 MG PO (14:40)
[2020-02-16 14:41] LABS: Anti-Double Strand DNA AB 1 IU/mL; Jo-1 Antibody <1.0 NEG AI (<1.0 NEG); SM/RNP Antibodies <1.0 NEG AI (<1.0 NEG); SS-B/LA IGG <1.0 NEG AI (<1.0 NEG); Scleroderma Ab(Scl-70) Ab <1.0 NEG AI (<1.0 NEG); Ss-A/Ro Igg <1.0 NEG AI (<1.0 NEG)
--- NOTE | 2020-02-16 14:47 | PC.NURSE ---
patient has temp of 100.8. Dr Montes notified.
--- NOTE | 2020-02-16 16:16 | PC.NURSE ---
rcvd order from Dr Montes for STAT blood culture. program writer put order in.
[2020-02-16 16:53] LABS: Glucose Point of Care 138 mg/dL (70-110)
[2020-02-16] MEDS: enoxaparin 40 mg/0.4 mL Syringe SUBCUT (18:17)
[2020-02-16 21:22] LABS: Glucose Point of Care 138 mg/dL (70-110)
[2020-02-17 03:00] VITALS: BP 108/68; PULSE 102; RESP 19; TEMP 36.8; O2SAT 95
[2020-02-17 05:17] VITALS: BP 112/73; PULSE 99; RESP 19; TEMP 37; O2SAT 96
[2020-02-17 06:44] LABS: Glucose Point of Care 118 mg/dL (70-110)
--- NOTE | 2020-02-17 07:00 | US_ITS ---
WS: [id number] RIGHT UPPER QUADRANT ULTRASOUND HISTORY: deranged liver enzymes COMPARISON: 10/05/2011 and 02/14/2020 Liver: 26.9 cm in length. Severe hepatomegaly and hepatic steatosis. No mass or bile duct dilatation is evident. Gallbladder: Prior cholecystectomy. CBD: 0.7 cm Pancreas: Poorly visualized. Tail and head are not seen very well. Right kidney: 12.9 cm in length. Normal echogenicity with no mass or hydronephrosis. Aorta and IVC: Unremarkable. No ascites. US/US liver [id number] IMPRESSION: 1. Severe hepatomegaly and hepatic steatosis. 2. No bile duct dilatation. 3. Prior cholecystectomy.
[2020-02-17 08:00] VITALS: BP 108/62; PULSE 102; RESP 16; TEMP 37.4; O2SAT 93
[2020-02-17] MEDS: famotidine 20 mg/2 mL INJ IVP ×2 (09:21→21:33)
[2020-02-17 10:21] LABS: Procalcitonin 0.79 ng/mL (0-0.5)
[2020-02-17 10:32] LABS: Alanine Aminotransferase 80 U/L (0-41); Albumin Level 2.3 g/dL (3.5-5.2); Alkaline Phosphatase 137 IU/L (40-130); Anion Gap 16.6 (5-19); Aspartate Amino Transferase 97 U/L (0-40); Blood Urea Nitrogen 37 mg/dL (6-20); Calcium 8.7 mg/dL (8.5-10.5); Carbon Dioxide 23 mmol/L (22-29); Chloride 92 mmol/L (98-107); Globulin 3.5 g/dL (1.3-4.6); Glomerular Filtration Rate 87.2 mL/min (90-130); Glucose 142 mg/dL (65-115); Osmolality Calculated 266 mOsm/kg (285-295); Potassium 3.6 mmol/L (3.5-5.1); Sodium 128 mmol/L (136-145); Total Bilirubin 2.4 mg/dL (0.15-1.2); Total Protein 5.8 g/dL (6.6-8.7)
[2020-02-17] MEDS: cefTRIAXone 1,000 MG in sodium chloride 0.9% (plus) 50 ML 100 MG IV (11:56)
[2020-02-17 11:58] LABS: Glucose Point of Care 122 mg/dL (70-110)
[2020-02-17 12:00] VITALS: BP 106/63; PULSE 96; RESP 18; TEMP 37; O2SAT 97
--- NOTE | 2020-02-17 13:38 | P.PN_ITS ---
Subjective Subjective: Interval history: No acute events overnight. T-max in last 24 hours 99.8 Fahrenheit. Patient has remained afebrile since last night. Temperature curve better. Rash seems to be more generalized but is becoming fainter as per the patient. He denies of having nausea, vomiting, headache, dizziness, palpitations, diarrhea, itching or pain at the rash, dysuria. Vitals/I&O/Wt Last Vital Signs Temp 98.6 F 02/17/20 12:00 Pulse 96 02/17/20 12:00 Resp 18 02/17/20 12:00 BP 106/63 02/17/20 12:00 Pulse Ox 97 02/17/20 12:00 02/16/20 02/17/20 02/17/20 22:59 06:59 14:59 Intake Total 700 / 1350 240 / 240 Output Total 450 / 450 Balance 700 / 1350 -450 / 900 240 / 240 Weight last 48 hrs Weight 172.365 kg Physical Exam Narrative: EXAM NARRATIVE: General: No acute distress, AO x3, morbidly obese, anxious HEENT: PERRLA, pupils bilaterally equal and reactive Chest: Normal vesicular breath sounds, no added sounds, equal good air entry bilaterally CVS: S1-S2 regular, no murmurs, no tachycardia, no gallops, no rubs Abdomen: Soft, nontender, no organomegaly, bowel sounds present Neuro: No focal deficits, no facial deformity, AO x3, power 5/5 in all limbs Extremities: Tenderness in bilateral knees, no localizing temperature, no range of motion abnormality. Skin: Multiple blanchable target-like lesions, slightly raised present bilateral arms, torso, bilateral legs. Data : 02/16/20 04:45 02/17/20 09:17 Micro: Microbiology 02/14/20 17:24 Group A Streptococcus Rapid Screen - Final Throat 02/16/20 14:45 Chlamydia trachomatis (CHAMP) - Final Urine Random Neisseria gonorrhoeae (CHAMP) - Final 02/16/20 14:45 Bacterial Antigens - Final Urine,Voided 02/16/20 17:13 Blood Culture - Preliminary Blood SPECIMEN COLLECTED 02/16/20 17:23 Blood Culture - Preliminary Blood SPECIMEN COLLECTED A&P Assessment and plan (1) Sepsis: Status: Acute (2) Febrile illness: Status: Acute (3) Hyponatremia: Status: Acute (4) SANDRA (acute kidney injury): Status: Acute (5) Elevated LFTs: Status: Acute (6) HTN (hypertension): Status: Acute (7) Morbid obesity: Status: Acute (8) Type 2 diabetes mellitus: Status: Acute (9) Erythema multiforme: Status: Acute Additional A&P Information Sepsis/febrile illness: Patient tachycardic, lactate elevated, leukocytosis so positive for sepsis criteria. Erythema multiforme: Rash consistent with erythema multiforme. Can be secondary to doxycycline as that is 1 of the rare complications. Patient's hepatitis panel, HIV, enteric panel for stool, urine analysis, strep antigen are all negative. 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 Tick panel awaited. [place] spotted fever panel awaited. [facility] TERI profile negative. Lyme's negative. Bacterial panel negative for strep. Results of CTA abdomen pelvis, chest appreciated. Consistent with para-aortic lymphadenopathy. Peripheral smear results appreciated negative for lymphoma. Patient denies of consuming unpasteurized products, raw meat but does go for fishing and has had some raw fish in between. Stool studies negative for any bacteria or parasite. We will check for tularemia, leptospirosis, mycoplasma. Check respiratory viral panel. QuantiFERON-TB gold awaited. Continue doxycycline at the same dose for now. We will add ceftriaxone 1 g daily from today onwards. Blood cultures have remained negative. If everything comes back to be negative will look for planning for Sporothrix though unlikely at present but can be possible due to nature of his physical activity and work. We will hold off on starting of any antifungals for now. Deranged LFTs: Most likely secondary to mild serositis. Liver ultrasound results appreciated. No stigmata or symptoms of cholangitis, cholecystitis. We will try to limit Tylenol as much as he can. Tylenol patient has just had 1 tablet of 650 mg since admission. Monitor LFTs daily. Normal saline at 75 cc/h. SANDRA: Resolved. Most likely from dehydration. Medical reconciliation done for nephrotoxic drugs. Stop IV fluids as patient is tolerating p.o. well. Hyponatremia: Mild worsening today. Corrected sodium 128. Now given the fact that sodium is still poor after IV hydration it could most likely be from beer proteinemia because of chronic alcohol abuse in the past. No symptoms of hyponatremia for now. Check BMP daily. No acute signs of hyponatremia Hypertension: Blood pressure well under control since admission even though holding lisinopril. Patient states lisinopril was started very recently when he had gone to his nurse practitioner. Most likely patient does not need antihypertensive. Type 2 diabetes mellitus: A1c 6.7. Continue with insulin sliding scale at low dose protocol for now. Patient would most likely need metformin on discharge. Full code. Lovenox for DVT prophylaxis Regular diet. If blood cultures continue to remain negative till tomorrow and LFTs remained stable we will plan to discharge patient with outpatient daily ceftriaxone for other 5 days for possible take related fevers. Tick panel can take up to a week to come back. Attestations Medical Necessity Statement*: FUO Time Spent in Patient Care: 16 - 35 minutes Coding Level of Care Code Acute Educational Institution President for Aniket Kiarrad Diagnoses Sepsis A41.9 Febrile illness R50.9 Hyponatremia E87.1 SANDRA (acute kidney injury) N17.9 Elevated LFTs R79.89 HTN (hypertension) I10 Morbid obesity E66.01 Type 2 diabetes mellitus E11.9 Erythema multiforme L51.9
[2020-02-17 15:50] VITALS: BP 133/75; PULSE 112; RESP 18; TEMP 37.1; O2SAT 96
[2020-02-17 16:12] LABS: Glucose Point of Care 138 mg/dL (70-110)
[2020-02-17 17:21] LABS: Glucose Point of Care 145 mg/dL (70-110)
[2020-02-17 20:00] VITALS: BP 114/63; PULSE 98; RESP 20; TEMP 37; O2SAT 95
[2020-02-17] MEDS: enoxaparin 40 mg/0.4 mL Syringe SUBCUT (21:33)
[2020-02-17 22:27] LABS: Glucose Point of Care 138 mg/dL (70-110)
[2020-02-18] VITALS: BP 114/65; PULSE 97; RESP 20; TEMP 36.7; O2SAT 96
[2020-02-18 04:00] VITALS: BP 121/70; PULSE 96; RESP 24; TEMP 37.5; O2SAT 96
[2020-02-18 05:25] LABS: Basophils % 0.3 %; Eosinophils # 0.1 10^3/uL (0.0-0.8); Eosinophils % 0.9 %; Hematocrit 33.5 % (42.0-52.0); Hemoglobin 10.9 g/dL (11.7-16.6); Lymphocytes # 0.9 10^3/uL (0.8-4.8); Lymphocytes % 7.6 %; Mean Corpuscular HGB Conc 32.5 g/dL (30.0-36.0); Mean Corpuscular Hemoglobin 26.8 pg (28.0-34.0); Mean Corpuscular Volume 82.3 fL (80-94); Mean Platelet Volume 10.6 fL (7.4-10.4); Monocytes # 0.5 10^3/uL (0.2-0.9); Monocytes % 4.4 %; Neutrophils # 9.6 10^3/uL (1.8-7.7); Neutrophils % 81.9 %; Nucleated Red Blood Cells % 0 %; Platelet Count 185 10^3/cmm (130-400); Red Blood Count 4.07 10^6/uL (4.1-5.3); Red Cell Distribution Width 14.8 % (12.1-15.1); White Blood Count 11.7 10^3/uL (4.0-10.0)
[2020-02-18 06:05] LABS: Alanine Aminotransferase 93 U/L (0-41); Albumin Level 2.3 g/dL (3.5-5.2); Alkaline Phosphatase 144 IU/L (40-130); Anion Gap 16.6 (5-19); Aspartate Amino Transferase 95 U/L (0-40); Blood Urea Nitrogen 29 mg/dL (6-20); Calcium 8.4 mg/dL (8.5-10.5); Carbon Dioxide 24 mmol/L (22-29); Chloride 94 mmol/L (98-107); Globulin 3.3 g/dL (1.3-4.6); Glomerular Filtration Rate 112.8 mL/min (90-130); Glucose 157 mg/dL (65-115); Osmolality Calculated 272 mOsm/kg (285-295); Potassium 3.6 mmol/L (3.5-5.1); Sodium 131 mmol/L (136-145); Total Bilirubin 1.9 mg/dL (0.15-1.2); Total Protein 5.6 g/dL (6.6-8.7)
[2020-02-18 06:25] LABS: Glucose Point of Care 131 mg/dL (70-110)
[2020-02-18 08:00] VITALS: BP 111/63; PULSE 100; RESP 20; TEMP 37.2; O2SAT 95
[2020-02-18] MEDS: famotidine 20 mg Tablet PO (08:13)
[2020-02-18 10:52] LABS: Glucose Point of Care 151 mg/dL (70-110)
[2020-02-18] MEDS: cefTRIAXone 1,000 MG in sodium chloride 0.9% (plus) 50 ML 100 MG IV (11:17)
[2020-02-18 11:28] VITALS: BP 104/57; PULSE 91; RESP 22; TEMP 36.6; O2SAT 94
--- NOTE | 2020-02-18 12:33 | P.DS_ITS ---
Discharge Providers Date of Admission: 02/14/20 19:23 Date of Discharge: February 18, 2020 Attending Provider at Admission: Joslyn Kiran MD Attending Provider at Discharge: Inocente Montes MD Primary Care Provider: Beverly Perez Diagnoses at Discharge Discharge Diagnosis (1) Sepsis: Status: Acute (2) Febrile illness: Status: Acute (3) Hyponatremia: Status: Acute (4) SANDRA (acute kidney injury): Status: Acute (5) Elevated LFTs: Status: Acute (6) HTN (hypertension): Status: Acute (7) Morbid obesity: Status: Acute (8) Type 2 diabetes mellitus: Status: Acute (9) Erythema multiforme: Status: Acute Reason for Visit Reason for Visit: Reason For Visit: FEVER, POSS [place] ILLNESS Hospital Course Discharge Summary: 29-year-old gentleman no segment past medical history other than recently diagnosed hypertension, history of alcohol abuse, morbid obesity post cholecystectomy presented to the ER on February 13 complaining of fevers going up to 102 Fahrenheit at home for last 2 weeks. Patient was evaluated for the same by his primary care physician with a negative strep throat, COVID-19 testing. On presentation patient denied any dysuria, nausea, vomiting, diarrhea, headache, dizziness, consumption of unpasteurized food, consumption of raw meat, night sweats, weight loss, shortness of breath. Patient works in the [email or web address] by the [employer] and is exposed to multiple ticks though he does not remember having any tick bites personally. He has 2 pets both of whom have been vaccinated. He denies of having any animal bites. He was complaining of joint tenderness and pain in both of his knees right hand and bilateral shoulders. He denies of having any rash as an outpatient. He is admitted to the floors for further work-up for fever of unknown origin. He was started on doxycycline empirically for possible tickborne fever. COVID- 19 testing was done again and came back negative. His blood cultures remained negative, CT abdomen chest pelvis was negative for any infective source other than para-aortic lymphadenopathy, negative hepatitis and HIV panel, stool studies negative for any infective etiology, strep antigen negative, Lyme's negative, [facility] TREI profile negative with a mildly elevated inflammatory markers with ESR and CRP. While being on doxycycline patient devel oped erythema multiforme so was switched over to ceftriaxone after which his fever curve improved and rash started settling down. For now there is no certain reason for febrile illness for the patient though complete tick panel and [place] spotted fever panel, antigen for tularemia, leptospirosis, mycoplasma is awaited. As patient is improving on ceftriaxone he is advised to continue taking IV ceftriaxone as an outpatient daily for next 5 days. It has been set up for him as an outpatient with GI lab. Patient has been advised if his fever is recurrent, persistent he is to follow- up with his primary care physician for possible lymph node biopsy. Patient did have a peripheral smear done which was negative for any parasite or malignancy. QuantiFERON gold is awaited as well. On admission patient was in mild SANDRA which resolved on its own with IV fluids. He also had hyponatremia which worsened with IV fluids but corrected to 129 while being off IV fluids. Hyponatremia is most likely because of beer proteinemia in the past. Patient's blood pressure remained stable without being him on lisinopril so is being discharged on no antihypertensives. He was found to have mildly elevated A1c up to 6.7 so is being advised to take metformin 500 mg twice daily. During hospitalization patient was also having fluctuating liver function panel for which liver ultrasound was done and was negative for any acute pathology. Physical Exam Narrative: EXAM NARRATIVE: General: No acute distress, AO x3, morbidly obese, anxious HEENT: PERRLA, pupils bilaterally equal and reactive Chest: Normal vesicular breath sounds, no added sounds, equal good air entry bilaterally CVS: S1-S2 regular, no murmurs, no tachycardia, no gallops, no rubs Abdomen: Soft, nontender, no organomegaly, bowel sounds present Neuro: No focal deficits, no facial deformity, AO x3, power 5/5 in all limbs Extremities: Tenderness in bilateral knees, no localizing temperature, no range of motion abnormality. Skin: Multiple blanchable target-like lesions, slightly raised present bilateral arms, torso, bilateral legs. Discharge Data Data Completed and Pending: Completed Studies During Hospitalization Category Date Time Status CT abdomen pelvis w con* [id number] Urge nt Cat Scan 02/14/20 15:[address] chest wo con 7 [id number] Routine Cat Scan 02/15/20 13:52 Completed XR chest 1V edel ble [id number] Urgent Exams 02/14/20 14:39 Completed CV echo complete* [id number] Routine Ultrasound 02/16/20 08:05 [place] [id number] Routin e Ultrasound 02/16/20 08:03 Completed US liver [id number] Ro utine Ultrasound 02/17/20 07:00 Completed Pending at discharge Category Date Time Status Blood Culture Sta t Lab 02/14/20 14:54 Results Blood Culture Sta t Lab 02/16/20 17:13 Results Francisella Tular ensis DA Routine Lab 02/16/20 16:13 Received Miscellaneous Edie t Routine Lab 02/16/20 16:13 Received Miscellaneous Edie t Routine Lab 02/16/20 16:13 Received Parasite Direct S mear Stat Lab 02/16/20 07:59 Uncollected Oaacpclreje-XV-Sk ld Plus Stat Lab 02/17/20 09:17 Received RMSF Panel Stat Lab 02/16/20 04:45 Received Respiratory Viral Panel PCR Stat Lab 02/16/20 16:25 Received Tick Panel Stat Lab 02/14/20 17:38 Results Labs from last 24 hours 02/18/20 02/18/20 02/18/20 10:42 06:21 04:45 WBC RBC Hgb Hct MCV MCH MCHC RDW Plt Count MPV Neut % (Auto) Lymph % (Auto) Ross % (Auto) Eos % (Auto) Baso % (Auto) Neut # (Auto) Lymph # (Auto) Ross # (Auto) Eos # (Auto) Baso # (Auto) Nucleated RBC % (a uto) Nucleated RBCs # Sodium 131 L Potassium 3.6 Chloride 94 L Carbon Dioxide 24 Anion Gap 16.6 BUN 29 H Creatinine 0.8 GFR Calculation 112.8 Glucose 157 H POC Glucose 151 131 Calculated Osmolal ity 272 L Calcium 8.4 L Total Bilirubin 1.9 H AST 95 H ALT 93 H Alkaline Phosphata se 144 H Total Protein 5.6 L Albumin 2.3 L Globulin 3.3 TB (QFT) Gold In T ube 02/18/20 02/17/20 02/17/20 04:45 22:23 17:18 WBC 11.7 H RBC 4.07 L Hgb 10.9 L Hct 33.5 L MCV 82.3 MCH 26.8 L MCHC 32.5 RDW 14.8 Plt Count 185 MPV 10.6 H Neut % (Auto) 81.9 Lymph % (Auto) 7.6 Ross % (Auto) 4.4 Eos % (Auto) 0.9 Baso % (Auto) 0.3 Neut # (Auto) 9.6 H Lymph # (Auto) 0.9 Ross # (Auto) 0.5 Eos # (Auto) 0.1 Baso # (Auto) 0.0 Nucleated RBC % (a uto) 0 Nucleated RBCs # 0.0 Sodium Potassium Chloride Carbon Dioxide Anion Gap BUN Creatinine GFR Calculation Glucose POC Glucose 138 145 Calculated Osmolal ity Calcium Total Bilirubin AST ALT Alkaline Phosphata se Total Protein Albumin Globulin TB (QFT) Gold In T ube 02/17/20 02/15/20 16:07 03:26 WBC RBC Hgb Hct MCV MCH MCHC RDW Plt Count MPV Neut % (Auto) Lymph % (Auto) Ross % (Auto) Eos % (Auto) Baso % (Auto) Neut # (Auto) Lymph # (Auto) Ross # (Auto) Eos # (Auto) Baso # (Auto) Nucleated RBC % (a uto) Nucleated RBCs # Sodium Potassium Chloride Carbon Dioxide Anion Gap BUN Creatinine GFR Calculation Glucose POC Glucose 138 Calculated Osmolal ity Calcium Total Bilirubin AST ALT Alkaline Phosphata se Total Protein Albumin Globulin TB (QFT) Gold In T ube TNP Vitals: Last Vital Signs Temp 97.9 F 02/18/20 11:28 Pulse 91 02/18/20 11:28 Resp 22 H 02/18/20 11:28 BP 104/57 02/18/20 11:28 Pulse Ox 94 02/18/20 11:28 Discharge Plan Discharge Patient Disposition: Home, Self-Care Condition: Stable Prescriptions: New ceftriaxone 1 gram [place] 1 gm IV Q24H 5 Days Qty: 5 RF: 0 metformin 500 mg tablet 500 mg PO BID Qty: 60 RF: 0 Continued Multiple Vitamins Tablet 1 tab PO DAILY RF: 0 ibuprofen 200 mg Tablet 600 mg PO BID PRN (Reason: Fever) RF: 0 Changed Tylenol Extra Strength 500 mg Tablet 500 - 1,000 mg PO BID PRN (Reason: fever more than 100.4F) Qty: 0 RF: 0 Discontinued lisinopril 5 mg Tablet 5 mg PO DAILY RF: 0 Discharge Orders: Discharge Order (Routine); Ordered 02/18/20 Ordered By: Inocente Montes Other Ambulatory Orders: DME: Cane/ Crutches (Order) Location: None Selected Ordered By: Inocente Montes Referrals: [facility] [Other] [facility] - Outpatient Surgery [Other] - 02/19/20 9:00 am (You will come into [facility] for your daily infusion of IV antibiotic for 5 more days. You will enter through the ER at the Registration table, then someone can show you how to get to the outpatient surgery department. Please arrive a few minutes early. Please call Outpatient Surgery department at the phone number provided if you have any questions or concerns. You may also call [facility] Case Management with any questions at [phone].) [facility] [Outside] Beverly Perez FNP [Primary Care Provider] - 4-7 days (Please call to make an appointment you will need to be seen in 4-7 days ) Discharge Diet: Regular Discharge Activity: Resume usual activity Patient Instructions: Ceftriaxone (Injection), [place] Spotted Fever (GEN) Activity Restrictions/Additional Instructions: Please follow-up with your primary care physician within next 4 to 7 days to discuss the blood work. Please follow-up at outpatient surgery for next 5 days for Rocephin 1 g IV daily. If on the blood work comes back negative for tick panel, [place] panel patient would benefit from possible lymph node biopsy. For fever can take Tylenol for overall 1 g a day. If exceeding and alternate with ibuprofen. Make sure you take Tylenol/ibuprofen along with food. Discharge Date/Time: 02/18/20 13:00 Discharge Attestations Time Spent in Discharge Care*: greater than 30 min Specific Discharge Activities: Specific discharge activities: educating patient, discussing with pcp/other providers, discussing with piano case and bench assembler/social workers/dc planners, documenting/other paperwork and evaluating patient/reviewing data Status at Discharge: Cognitive status at discharge: cognitively intact , Behavioral status at discharge: cooperative , Functional status at discharge: independent ambulation Overall status at discharge: patient is back to baseline Quality Metrics Clinical Quality Measures During this hospital stay, did patient experience: None Coding Level of Care Code Acute Pattern Changer And Repairer for Aniketg Fwd Diagnoses Sepsis A41.9 Febrile illness R50.9 Hyponatremia E87.1 SANDRA (acute kidney injury) N17.9 Elevated LFTs R79.89 HTN (hypertension) I10 Morbid obesity E66.01 Type 2 diabetes mellitus E11.9 Erythema multiforme L51.9
[2020-02-18 12:51] VITALS: BP 104/57; PULSE 91; RESP 22; TEMP 36.6; O2SAT 94
[2020-02-18 14:33] VITALS: BP 104/57; PULSE 91; RESP 22; TEMP 36.6; O2SAT 94
[2020-02-18 15:27] LABS: E. Chaffeensis AB IGG <1:64; E. Chaffeensis AB IGM <1:20
[2020-02-18 15:57] LABS: RMSF IGG NOT DETECTED; RMSF IGM NOT DETECTED
[2020-02-19 14:31] LABS: Adenovirus Not Detected (Not Detected); Human Metapneumovirus Not Detected (Not Detected); Human Parainflu Virus 1 Not Detected (Not Detected); Human Parainflu Virus 2 Not Detected (Not Detected); Human Parainflu Virus 3 Not Detected (Not Detected); Human Rsv A Not Detected (Not Detected); Influenza A Not Detected (Not Detected); Influenza B Not Detected (Not Detected); Rhinovirus/Enterovirus Not Detected (Not Detected)
[2020-02-19 16:21] LABS: Quantiferon Mitogen 0.76 IU/mL; Quantiferon Nil 0.01 IU/mL; Quantiferon TB Gold NEGATIVE (NEGATIVE)
[2020-02-19 16:46] LABS: Rocky Mountain IgG NOT DETECTED; Rocky Mountain IgM NOT DETECTED
[2020-02-23 16:11] LABS: Francisella Tularensis DA <1:20
== END 2020-02-18 13:00 | disposition home or self-care (01) | DRG 872 ==
LOC: ER 17:15 → ICU 17:19 → MEDSURG 02-15 17:33
PROVIDERS: Physician Assistant; Admitting Provider Student in an Organized Health Care Education/Training Program; Emergency Provider Emergency Medicine; PCP Nurse Practitioner Family; Visit Provider Student in an Organized Health Care Education/Training Program
DX: A41.9 Sepsis, unspecified organism (principal); Z68.43 Body mass index [BMI] 50.0-59.9, adult; E87.1 Hypo-osmolality and hyponatremia; N17.9 Acute kidney failure, unspecified; I10 Essential (primary) hypertension; F10.21 Alcohol dependence, in remission; E66.01 Morbid (severe) obesity due to excess calories; Z90.49 Acquired absence of other specified parts of digestive tract; E86.0 Dehydration; E11.9 Type 2 diabetes mellitus without complications; Z86.718 Personal history of other venous thrombosis and embolism; L51.9 Erythema multiforme, unspecified; R16.0 Hepatomegaly, not elsewhere classified; K76.0 Fatty (change of) liver, not elsewhere classified; Z79.84 Long term (current) use of oral hypoglycemic drugs
CPT/HCPCS: 12345; 36415; 36416; 71045; 71250; 74177; 76705; 80053; 80061; 80306; 80307; 80500; 81001; 82274; 82436; 82550; 82962; 83036; 83605; 83615; 83630; 83690; 84133; 84145; 84300; 85025; 85378; 85610; 85651; 85730; 86000; 86140; 86225; 86235; 86308; 86403; 86480; 86592; 86618; 86666; 86705; 86706; 86709; 86738; 86757; 86803; 87040; 87081; 87340; 87449; 87491; 87493; 87506; 87591; 87635; 87641; 87798; 87806; 87880; 93306; 93970; 94664; 96372; 96375; 99282; G0378; J0696; J1650; J1815; J3490; J7030; J7050; Q9967

== ENCOUNTER 2020-02-14 14:17 | Emergency (ER) | payer MEDICAID, SELFPAY | END 2020-02-14 18:01 | disposition still patient (30) | LOC: ER 05-03 12:37 | PROVIDERS: Emergency Provider Emergency Medicine | DX: R50.9 Fever, unspecified (principal); E87.1 Hypo-osmolality and hyponatremia; R79.89 Other specified abnormal findings of blood chemistry | CPT/HCPCS: 12345; 71045; 74177; 80053; 80306; 80307; 80500; 81001; 82550; 83605; 83615; 83690; 84145; 85025; 85378; 85610; 85730; 86140; 86225; 86235; 86308; 86618; 86666; 86705; 86706; 86709; 86757; 86803; 87040; 87081; 87340; 87806; 87880; 99282; G0378; J7030; Q9967 ==

== ENCOUNTER 2020-02-22 09:09 | Outpatient (RCR) | payer MEDICAID, SELFPAY ==
[2020-02-19 10:02] VITALS: BP 138/84; PULSE 99; RESP 18; TEMP 36.9; O2SAT 97; BMI 51.9
[2020-02-20] MEDS: cefTRIAXone 1,000 MG in sodium chloride 0.9% (plus) 50 ML 100 MG IV (09:17)
[2020-02-20 09:25] VITALS: BP 139/73; PULSE 107; RESP 18; TEMP 37.2; O2SAT 95
[2020-02-21] MEDS: cefTRIAXone 1,000 MG in sodium chloride 0.9% (plus) 50 ML 100 MG IV (09:15)
[2020-02-21 09:19] VITALS: BP 142/90; PULSE 95; RESP 18; TEMP 36.9; O2SAT 98
[2020-02-22] MEDS: cefTRIAXone 1,000 MG in sodium chloride 0.9% (plus) 50 ML 100 MG IV (09:25)
[2020-02-22 09:44] VITALS: BP 143/76; PULSE 97; RESP 18; TEMP 37; O2SAT 96
[2020-02-23] MEDS: cefTRIAXone 1,000 MG in sodium chloride 0.9% (plus) 50 ML 100 MG IV (09:20)
[2020-02-23 09:26] VITALS: BP 142/79; PULSE 93; RESP 20; TEMP 37; O2SAT 96
== END 2020-03-20 23:59 | disposition home or self-care (01) ==
LOC: OPS 09:09
PROVIDERS: PCP Nurse Practitioner Family; Visit Provider Student in an Organized Health Care Education/Training Program
DX: R50.9 Fever, unspecified (principal)
CPT/HCPCS: 96365; J0696

== ENCOUNTER 2020-03-22 09:26 | Outpatient (CLI) | payer MEDICAID, SELFPAY ==
--- NOTE | 2020-03-22 09:35 | XR_ITS ---
WS: [id number] XR chest 2V* [id number] REASON FOR EXAM: FEVER FINDINGS: Elevation of the right hemidiaphragm is seen similar to February 14, 2020. The heart is normal. The lung gill are well aerated. No pneumonia, pleural effusion, pulmonary edema, or pneumothorax. The hilum and apices are normal. No osseous abnormalities. XR/XR chest 2V* [id number] IMPRESSION: Dated chest for acute pathology.
== END 2020-03-22 09:27 | disposition home or self-care (01) ==
LOC: RAD 09:28
PROVIDERS: PCP Nurse Practitioner Family; Visit Provider Nurse Practitioner Family
DX: R50.9 Fever, unspecified (principal)
CPT/HCPCS: 71046

== ENCOUNTER 2020-03-25 09:09 | Outpatient (CLI) | payer MEDICAID, SELFPAY ==
[2020-03-25 11:21] LABS: Basophils # 0.1 10^3/uL (0.0-0.1); Basophils % 0.3 %; Eosinophils # 0.2 10^3/uL (0.0-0.8); Eosinophils % 1.4 %; Hematocrit 31.5 % (42.0-52.0); Hemoglobin 9.8 g/dL (11.7-16.6); Lymphocytes # 2.1 10^3/uL (0.8-4.8); Mean Corpuscular HGB Conc 31.1 g/dL (30.0-36.0); Mean Corpuscular Hemoglobin 25.6 pg (28.0-34.0); Mean Corpuscular Volume 82.2 fL (80-94); Mean Platelet Volume 10.9 fL (7.4-10.4); Monocytes # 0.8 10^3/uL (0.2-0.9); Monocytes % 5.7 %; Neutrophils # 10.9 10^3/uL (1.8-7.7); Neutrophils % 74.4 %; Nucleated Red Blood Cells % 0.1 %; Platelet Count 141 10^3/cmm (130-400); Red Blood Count 3.83 10^6/uL (4.1-5.3); Red Cell Distribution Width 14.7 % (12.1-15.1); White Blood Count 14.7 10^3/uL (4.0-10.0)
[2020-03-25 11:36] LABS: LAB Peripheral Smear Sent for Review
[2020-03-25 11:54] LABS: Alanine Aminotransferase 11 U/L (0-41); Albumin Level 4.1 g/dL (3.5-5.2); Alkaline Phosphatase 83 IU/L (40-130); Anion Gap 19.3 (5-19); Aspartate Amino Transferase 13 U/L (0-40); Blood Urea Nitrogen 9 mg/dL (6-20); Calcium 9.6 mg/dL (8.5-10.5); Carbon Dioxide 24 mmol/L (22-29); Chloride 101 mmol/L (98-107); Globulin 3.2 g/dL (1.3-4.6); Glomerular Filtration Rate 131.5 mL/min (90-130); Glucose 109 mg/dL (65-115); Lactate Dehydrogenase 163 U/L (135-225); Osmolality Calculated 287 mOsm/kg (285-295); Potassium 4.3 mmol/L (3.5-5.1); Sodium 140 mmol/L (136-145); Total Bilirubin 0.9 mg/dL (0.15-1.2); Total Protein 7.3 g/dL (6.6-8.7)
[2020-03-25 12:05] LABS: Erythrocyte Sedimentation Rate 67 mm/hr (0-10)
[2020-03-25 12:13] LABS: Hepatitis A Antibody IgM Non-Reactive (Nonreactive); Hepatitis B Core AB, Total Non-Reactive (Nonreactive); Hepatitis B Surface Antigen Non-Reactive (Nonreactive); Hepatitis C Virus Antibody Non-Reactive (Nonreactive)
[2020-03-25 14:45] LABS: Ferritin 329 ng/mL (30-400); Iron 28 ug/dL (59-158); Percent Saturation 11.3 % (20-50); Total Iron Binding Capacity 247 mcg/dl; Unsaturated Iron Binding 219 ug/dL (112-347); Vitamin B12 258 pg/mL (232-1245)
--- NOTE | 2020-03-25 20:30 | ONC CON_ITS ---
Dr. Benedict New Patient Note Patient: Roberto Paniagua Unit #: [id number]: 1990 Dicatated By: Pedro Benedict M.D.Date of Visit: Mar 25, 2020 Onc MED New Patient/Consult Referring Physician: William Mcgrath Chief Complaint: Fever, leukocytosis, and mild anemia. History of Present Illness: This is a 29-year-old man with fever and leukocytosis. He also has mild anemia. He has hypertension, hyperlipidemia, and type 2 diabetes. On 02/14/2020 he was admitted to the hospital after presenting to the emergency room with fever of 2 weeks duration. His initial CBC showed normal hemoglobin at 13.4 g with white blood cell count 13,700 and platelet count 114,000. BUN and creatinine were elevated at 28 and 1.4 mg/dL. The liver enzymes were mildly elevated. His serum lactate was elevated at 2.9 mmol/L. His CT abdomen/pelvis showed enlarged liver measuring 24 cm. There were no focal defects. The only other significant finding was enlarged periaortic lymph nodes, the largest measuring 1.[address] the following day reported splenomegaly but no other abnormal findings. With hydration his hemoglobin dropped to 11.5 g. His creatinine normalized. His sed rate was found to be moderately elevated at 53 mm/hour. Blood cultures remained negative. In the meantime, he had been started on doxycycline with a presumptive diagnosis of tickborne zoonosis. The antibiotic was then changed to ceftriaxone following an allergic reaction to the doxycycline. He was then discharged home to complete a course of IV ceftriaxone as an outpatient. His CBC at discharge showed hemoglobin 10.9 g with white blood cell count 11,700 and platelet count 185,000. Renal function was normal with BUN 29 and creatinine 0.8 mg/dL. His total bilirubin was still slightly elevated at 1.9 mg/dL and liver enzymes remained mildly elevated. His tick fever panel subsequently came back negative. In the meantime, he indicates that he had become afebrile while on the ceftriaxone. During that time he had developed joint pain in his hands and feet, but that subsequently resolved. Following completion of his antibiotic therapy, he had recurrence of daily fever, up to a maximum has been 102.9 degrees. With ibuprofen, he has been able to keep it at 99 200 degrees. His energy level has varied somewhat, but he does feel unusually tired when he has the fever. His activity is limited, but he is able to do light work. His appetite had declined somewhat, but is back to normal now. He has had a weight loss of about 30 pounds. He has chills and sweating with the fever. He has not been having night sweating. He previously had sore throat and some cough, but that has resolved. He does not complain of shortness of breath or chest pain. He has no GI or complaints. His joint pain has pretty well resolved. He still has pain in his right foot if he is up on his feet too long. He has slight headache with the fever. He has no focal neurologic symptoms. Past Medical History: His medical history includes hyperlipidemia, hypersomnia, hypertension, and type II diabetes. Past Surgical History: His surgical/procedural history includes cholecystectomy and EGD. Medications: Lisinopril 1 Tablet (of 5 mg) Oral daily, metFORMIN HCl 1 Tablet (of 500 mg) Oral daily, Simvastatin 1 Tablet (of 20 mg) Oral daily Allergies: Doxycycline Hyclate Social History: Mr. Paniagua is and he is employed as a [employer] driver. He is a non-smoker. He previously had moderate alcohol use, typically 12-18 beers per week. He quit alcohol use 2 months ago. Family History: Father in a motor vehicle accident at age 34. Mother is still living at age 54. A sister of leukemia at age 4. His maternal grandfather had some type of bone cancer . Review Of Symptoms: Constitutional - He generally feels fatigued. His energy is up and down throughout the day but he is able to do some light work. His appetite is good. He has been dieting for a few months and is down about 30 pounds. He has been having fevers on and off for approximately 3 weeks ranging in the range of 101 to 102. He has chills and sweating. ECOG score is 1, Eyes - He occasionally has spots in his visual gill. He has no other visual change, ENMT - No hearing loss or tinnitus. No sinus congestion/drainage. No mouth sores. He had sore throat, but now resolved. No difficulty swallowing, Hematologic/Lymphatic - No abnormal bruising or bleeding, Respiratory - No shortness of breath. He was having cough occasionally, now resolved. No pleuritic pain or hemoptysis, Cardiovascular - No angina pain. No palpitations, Gastrointestinal - No nausea or vomiting. No heartburn or acid reflux. No diarrhea or constipation. No blood in the stool or black stools, Genitourinary (M) - No dysuria or hematuria. No urinary frequency. No urgency or incontinence, Musculoskeletal - He was having significant joint pain in his hands and feet during the first few weeks of fever, but this has improved. He continues to have pain in his foot if he is up on his feet too long, Integumentary - He had a rash on his right foot at the initial onset of the illness, Neurologic - He has a slight headache with the fever. No dizziness. No numbness or tingling. No other focal neurologic symptoms, Psychiatric - No anxiety or depression. No insomnia. Vital Signs: Performed on Mar 25, 2020 09:24: 0, 46.57 (HIGH), 2.68 sq.m, 72.00 in, 97 %, 113 /min (HIGH), 22 /min, 129/84 mm(hg), 98.0 F (LOW), and 343.4 lbs (HIGH). Physical Examination: Constitutional - He does not appear acutely ill, Eyes - Sclerae nonicteric. Conjunctivae clear, ENMT - There is a resolving herpetic lesion just below the lower lip on the left side. There are no lesions noted in the oral cavity, Neck - No mass or thyromegaly, Hematologic/Lymphatic - No cervical, clavicular, or axillary adenopathy, Respiratory - Lungs are clear with good air movement bilaterally, Cardiovascular - Heart rhythm is regular. There is a mild tachycardia. There is no murmur, gallop, or rub noted, Abdomen - Soft and non-tender. Liver and spleen do not appear overtly enlarged, but exam is limited due to body habitus. There is no abdominal mass or ascites noted and there is no inguinal adenopathy, Back/Spine - No spine or CVA tenderness noted, Extremities - Slight edema. Dorsalis pedis pulses are palpable bilaterally, Integumentary - No rashes. No suspicious skin lesions noted, Neurologic - No focal neurologic deficits noted. Impression: 1. Patient with febrile illness of undetermined cause. It was initially thought to be a tickborne zoonosis. Onset was in mid January. By his account the fever had resolved during antibiotic therapy with ceftriaxone, but recurred once he stopped treatment. 2. He has mild leukocytosis and mild anemia. 3. He had CT evidence of periaortic lymphadenopathy, the largest measuring 1.6 cm. 4. He has had persistently elevated liver enzymes with CT evidence of hepatomegaly and ultrasound evidence of hepatic steatosis. His other medical illnesses include: 5. Hypertension. 6. Hyperlipidemia. 7. Type 2 diabetes. This patient has had a prolonged illness with fever, leukocytosis, and mild anemia. There was mild periaortic lymphadenopathy by CT scan, though the clinical significance of that is uncertain. There is also hepatomegaly and mildly elevated liver enzymes, but that appears to be due to hepatic steatosis and is most likely unrelated to the acute illness. The clinical picture is still most suggestive of an infectious process. Another consideration, though, would be the possibility of an underlying hematologic malignancy. Plan: I reviewed the laboratory findings, CT findings, and clinical implications. At this point I will obtain additional laboratory studies including CBC, comprehensive metabolic profile, reticulocyte count, LDH level, haptoglobin level, sed rate and CRP, comprehensive hepatitis profile, TERI screen and RA titer, serum iron studies, B12 and folate levels, and serum protein electrophoresis. I also will recheck the tick fever panel, and I will review the blood smear. He will have further evaluation as indicated. At a minimum, I do expect to repeat a CT abdomen/pelvis. He may need a bone marrow aspiration/biopsy. Signed By: Pedro Benedict M.D. <<Signature on File>>
[2020-03-26 10:11] LABS: PROTEIN, TOTAL 6.8 g/dL (6.1-8.1)
[2020-03-28 13:11] LABS: Anti-Nuclear Antibody Screen NEGATIVE (NEGATIVE)
[2020-03-28 13:41] LABS: Lyme AB Screen <0.90 index
[2020-03-28 15:11] LABS: ALBUMIN 3.2 g/dL (3.8-4.8); ALPHA 1 GLOBULIN 0.6 g/dL (0.2-0.3); ALPHA 2 GLOBULIN 0.9 g/dL (0.5-0.9); BETA 1 GLOBULIN 0.5 g/dL (0.4-0.6); BETA 2 GLOBULIN 0.5 g/dL (0.2-0.5); GAMMA GLOBULIN 1.1 g/dL (0.8-1.7)
[2020-03-30 15:26] LABS: RMSF IGG NOT DETECTED; RMSF IGM NOT DETECTED
[2020-03-30 17:22] LABS: E. Chaffeensis AB IGG <1:64; E. Chaffeensis AB IGM <1:20
== END 2020-03-25 09:10 | disposition home or self-care (01) ==
PROVIDERS: PCP Nurse Practitioner Family; Visit Provider Internal Medicine Medical Oncology
DX: D72.829 Elevated white blood cell count, unspecified (principal); R50.9 Fever, unspecified; D64.9 Anemia, unspecified; R59.0 Localized enlarged lymph nodes; R94.5 Abnormal results of liver function studies; K76.0 Fatty (change of) liver, not elsewhere classified; R16.0 Hepatomegaly, not elsewhere classified; I10 Essential (primary) hypertension; E78.5 Hyperlipidemia, unspecified; E11.9 Type 2 diabetes mellitus without complications
CPT/HCPCS: 80053; 82607; 82728; 82746; 83010; 83540; 83550; 83615; 84155; 84165; 85025; 85045; 85651; 86038; 86141; 86431; 86618; 86666; 86705; 86706; 86709; 86757; 86803; 87340; 99205

== ENCOUNTER 2020-05-09 13:57 | Outpatient (CLI) | payer MEDICAID, SELFPAY ==
--- NOTE | 2020-05-09 14:01 | US_ITS ---
WS: [id number] TESTICULAR ULTRASOUND HISTORY: NEW GROWTH ON TESTICLE COMPARISON: 11/28/2015 TECHNIQUE: Real-time and color Doppler imaging or utilized to perform a testicular ultrasound. Right testicle: 4.1 cm x 2.9 cm x 2.4 cm. Normal size and echogenicity. There is a hypoechoic area in the central testicle measuring 3 mm which is nonspecific. Normal color Doppler is present throughout. Systolic and diastolic velocities are both present. There is small simple RIGHT hydrocele. Right epididymis: Normal epididymis with no increased vascularity. Left testicle: 4.5 cm x 2.6 cm x 2.4 cm. Normal size and echogenicity. No mass or torsion. Normal color Doppler is present throughout. Systolic and diastolic velocities are both present. No significant hydrocele. Left epididymis: Normal epididymis with no increased vascularity. US/US scrotum [id number] IMPRESSION: 1. No testicular solid mass identified. 2. There are 2 hypoechoic areas in the central RIGHT testicle measuring 3 mm e ach. Nonspecific and may be small cysts. Less likely neoplastic.
== END 2020-05-09 13:58 | disposition home or self-care (01) ==
LOC: RAD 14:00
PROVIDERS: PCP Nurse Practitioner Family; Visit Provider Internal Medicine Medical Oncology
DX: N50.89 Other specified disorders of the male genital organs (principal)
CPT/HCPCS: 76870

== ENCOUNTER 2021-06-21 20:00 | Outpatient (CLI) | payer MEDICAID, SELFPAY | END 2021-06-21 20:01 | disposition home or self-care (01) | LOC: SLEEP 06-22 08:18 | PROVIDERS: PCP Nurse Practitioner Family; Visit Provider Nurse Practitioner Family | DX: G47.10 Hypersomnia, unspecified (principal); R06.83 Snoring; R53.83 Other fatigue; G47.33 Obstructive sleep apnea (adult) (pediatric) | CPT/HCPCS: 95810 ==

== ENCOUNTER 2021-10-23 10:17 | Outpatient (CLI) | payer MEDICAID, SELFPAY ==
[2021-10-23 10:25] VITALS: BP 143/91; PULSE 92; RESP 19; TEMP 36.5; O2SAT 98
[2021-10-23 10:34] VITALS: BMI 47.5
[2021-10-23 11:02] VITALS: BP 161/96; PULSE 89; RESP 18; TEMP 36.7; O2SAT 98
[2021-10-23 12:02] VITALS: BP 160/98; PULSE 88; RESP 17; TEMP 36.7; O2SAT 97
== END 2021-10-23 10:18 | disposition home or self-care (01) ==
LOC: OPS 10:20
PROVIDERS: PCP Nurse Practitioner Family; Visit Provider Nurse Practitioner Family
DX: U07.1 COVID-19 (principal)
CPT/HCPCS: 96365

== ENCOUNTER → 2023-04-01 14:18 | Outpatient (BNVA) | payer MEDICAID, SELFPAY | PROVIDERS: PCP Nurse Practitioner Family; Visit Provider Nurse Practitioner Family | DX: M79.672 Pain in left foot (principal); M25.572 Pain in left ankle and joints of left foot | CPT/HCPCS: 73610; 73620 ==